=== PATIENT | male | born 1930 | race Caucasian/White ===

== ENCOUNTER 2016-09-17 14:48 | Inpatient (IN) | payer MEDICARE ==
[~2016-09-17] VITALS: Ht 172.7 cm; Wt 83.9 kg
[2016-09-17] VITALS (7 sets, daily range): BP systolic 98–133; BP diastolic 50–71; PULSE 54–67; RESP 12–18; O2SAT 98–100
[~2016-09-17 14:48] MED LIST: ALFU10TA11 PO; ALPR0.254 PO; CALC-890 PO; CARV3.122 PO; FRSM80T PO; GABA-502 PO; LISI2.5T PO; MAGN400C PO; NITR0.4T SL; PARO10TA2 PO; RANI150T11 PO; SPIR25TA3 PO; TRAM50TA2 PO; WARF5TAB7 PO
--- NOTE | 2016-09-17 15:16 | ED.REPORT ---
HPI-General Illness Date of Service Sep 17, 2016 ED Provider: Dr. Jean King M.D. An 86 year old male with a medical history including CHF, CAD, diabetes, hypertension, peripheral neuropathy, and atrial fibrillation s/p pacemaker placement presents to the ED from his PCP's office accompanied by his with worsening bilateral lower extremity swelling over the past six months. Associated symptoms include SOB, recent weight increase, mouth pain, and bilateral finger pain. Last week, the patient's furosemide dose was increased by his layout inspector. He has gained four more pounds since. The patient denies chest pain or other symptoms. Nursing Notes Stated Complaint: FLUID RETENTION Chief Complaint: General Complaint Nursing Notes Reviewed: Yes Allergies: Coded Allergies: Sulfa (Sulfonamide Antibiotics) (Verified Allergy, Severe, Itching and rash, 09/17/16) hydrocodone (Verified Allergy, Mild, 09/17/16) hydroxyzine (Verified Allergy, Mild, 09/17/16) Scheduled Alfuzosin ER (Alfuzosin ER) 10 Mg Tab.er.24h 10 MG PO QAM Calcium Carbonate/Vitamin D3 (Calcium 600 + Vit D3 Tablet) 1 Each Tablet 1 EACH PO BID Carvedilol (Carvedilol) 3.125 Mg Tablet 3.125 MG PO BID Furosemide (Furosemide) 20 Mg Tab 60 MG PO BID Magnesium Oxide (Magnesium) 400 Mg Capsule 400 MG PO BID Spironolactone (Spironolactone) 25 Mg Tablet 12.5 MG PO QAM Warfarin Sodium (Warfarin Sodium) 5 Mg Tablet 2.5 MG PO DAILY except Warfarin Sodium (Warfarin Sodium) 5 Mg Tablet 5 MG PO Q Tuesday Scheduled PRN Nitroglycerin SL (Nitrostat) 0.4 Mg Tab.subl 0.4 MG SL Q5MIN PRN PRN For Chest Pain oxyCODONE (oxyCODONE) 5 Mg Tablet 5 MG PO BID PRN PRN For Pain General Time Seen by MD: 15:15 Transferred From: Private physician office Chief Complaint Other (Bilateral Lower Extremity Swelling) Hx Obtained From: Patient, Spouse Arrived By: Walk-in Sudden in Onset?: No Onset Occurred: More than a week ago... (Six months) Symptom Duration: Since onset Location: : Hand left (Fingers): Hand right (Fingers): Mouth Quality: Painful Severity: Current: Moderate Severity: Maximum: Moderate Pertinent Negative: Relieved by nothing Context Related History: Reports Coronary artery disease, Reports Diabetes mellitus Recent Healthcare: Recent doctor visit Similar Sx Previous: Yes Past Medical History Past Medical History Notes: Photographer Portrait - Dr. Valentine Past Medical History Myocardial infarction - Anterior [place] CHF (systolic), EF 25% by echo in 2014 history of diverticulitis arthritis Cholecystitis History of perforated gastric ulcer 1967 History of peripheral vascular disease History of prostate CA History of peripheral vascular disease History of atrial fibrillation, now a pacemaker Reports: Coronary artery disease, Diabetes mellitus, Hyperlipidemia, Hypertension Past Surgical History Biventricular AICD left knee surgery perforated ulcer repair 1967 intestinal resection PTCA and stenting LAD Cardiac ablation for A. fib/flutter Reports: Appendectomy Reports: Pacemaker insertion Smoking History Former Smoker Social History Alcohol Use: Denies alcohol use Drug Use: Denies drug use Other Social History: Ambulatory Status Independent Review of Systems Full Review of Systems Constitutional: Denies: Fever Ears / Nose / Throat: Reports: Mouth pain Respiratory: Reports: Shortness of breath, Denies: Non-productive cough Cardiovascular: Denies: Chest pain GI: Denies: Diarrhea, Vomiting Musculoskeletal: Reports: Extremity pain (Bilateral fingers), Extremity swelling (Bilateral legs) Endocrine: Reports: Weight gain (Recently 4lbs in one week) Complete sys rev & neg: except as marked. Physical Exam Vital Signs Vital Signs Date Time Temp Pulse Resp B/P Pulse Ox O2 Delivery O2 Flow Rate FiO2 09/17/16 17:53 59 12 98/52 98 Room Air 09/17/16 16:06 59 18 103/50 98 Room Air 09/17/16 15:06 36.0 60 18 101/67 98 Room Air Initial VS: Reviewed ENT: Conjunctiva normal, No scleral icterus Skin: Warm, Dry Psychiatric: Mood/affect normal, Behavior normal General/Constitutional: Awake, Alert, Not toxic appearing Head / Eyes: Atraumatic, Normocephalic Neck: Supple, Full range of motion Respiratory / Chest: Breath sounds = bilat, No respiratory distress Chest Wall / Ribs: Positive: Implanted cardiac device (Pacemaker palpable in left anterior chest wall) Mild crackles in bilateral bases Cardiovascular: Heart rate NL, Regular rhythm, Heart sounds NL, No gallop, No murmurs, No rubs, Peripheral circulation NL (Good radial pulses) Lower Ext Edema: Positive: Pitting (Marked, bilateral, extends up to knees) Abdomen: Soft, Non-tender, No distention Lower Extremity / Pelvis / MS: Atraumatic Leaking serous fluid from bilateral edematous legs Neurologic: Oriented X3, Speech NL Interpretation & Diagnostics Lab Results Interpretation Result Diagram: 09/17/16 1603 09/17/16 1603 Test 09/17/16 16:03 White Blood Count 6.7th/mm3 (3.8-10.1) Red Blood Count 4.71mil/mm3 (4.40-5.80) Hemoglobin 9.7g/dL (13.8-17.2) Hematocrit 30.4% (41.0-50.0) Mean Corpuscular Volume 64.5fL (81-100) Mean Corpuscular Hemoglobin 20.6pg (27.0-35.0) Mean Corpuscular Hemoglobin Concent 31.9% (32.0-37.0) Red Cell Distribution Width 20.5% (12.3-15.4) Platelet Count 102bil/L (150-400) Neutrophils (%) (Auto) 78.6% (40-74) Lymphocytes (%) (Auto) 9.7% (14-46) Monocytes (%) (Auto) 10.6% (4-12) Eosinophils (%) (Auto) 0.9% (0-5) Basophils (%) (Auto) 0.1% (0-3) Prothrombin Time 84.1sec (8.1-12.5) Prothromb Time International Ratio 7.54ratio Sodium Level 126mEq/L (134-144) Potassium Level 4.4mEq/L (3.5-5.2) Chloride Level 85mEq/L (97-108) Carbon Dioxide Level 20mmol/L (18-29) Blood Urea Nitrogen 99mg/dL (8-27) Creatinine 2.78mg/dL (0.76-1.27) Estimat Glomerular Filtration Rate 23mL/min (>59) Glucose Level 146mg/dL (60-99) Calcium Level 9.5mg/dL (8.5-10.1) Magnesium Level 2.4mg/dL (1.6-2.6) Total Bilirubin 1.1mg/dL (0.0-1.2) Aspartate Amino Transf (AST/SGOT) 51U/L (0-50) Alanine Aminotransferase (ALT/SGPT) 41U/L (0-44) Alkaline Phosphatase 133U/L (25-160) Troponin T 0.054ug/L (0.0-0.011) Pro-B-Type Natriuretic Peptide 14777ob/mL (0-486) Total Protein 6.6g/dL (6.4-8.4) Albumin 3.7g/dL (3.4-5.0) Hold [place] Top Tube Received (Received) ECG Interpretation ECG Interpretation: Ventricular-paced complexes rate 68 When compared to prior (01/05/2016) there are no acute changes present Time: 15:21 Interpreted by: ED physician X-Ray Chest Interpretation Chest Xray Interpretation: IMPRESSION: No acute process. Dictated by: Sherman Escamilla M.D. on 09/17/2016 at 15:56 View: Portable, 1 view Interpretation / Wet Read by: Interpret - Radiologist Re-Eval/Medical Decision Med Decision/Clinical Course An 86 year old male with a medical history including CHF, CAD, diabetes, hypertension, peripheral neuropathy, and atrial fibrillation s/p pacemaker placement presents to the ED from his PCP's office accompanied by his with worsening bilateral lower extremity swelling over the past six months. Associated symptoms include SOB, recent weight increase, mouth pain, and bilateral finger pain. Last week, the patient's furosemide dose was increased by his layout inspector. He has gained four more pounds since. The patient denies chest pain or other symptoms. Here in the emergency department the patient is afebrile so consistently borderline hypotensive, otherwise with stable vital signs and examination as above. ECG 15:21 Ventricular-paced complexes rate 68 When compared to prior (01/05/2016) there are no acute changes present CXR: Obtained, reviewed and interpreted by myself shows no evidence of infiltrates, effusions or pneumothorax. Cardiac and mediastinal silhouette normal. No bony or soft tissue abnormalities. LAB: No leukocytosis Stable hematocrit at 30.4 BUN 99 - acutely elevated from baseline of 20-30 Creatinine 2.78 - acutely elevated from baseline of 1 BMP 32649 Troponin 0.054 Potassium 4.4 Sodium 126 - at baseline INR 7.54 Time, patient presents with weight gain and worsening lower extremity edema in the setting of increasing his Lasix to 60 mg twice daily. He has acute renal failure with markedly elevated BUN and creatinine. EKG does not demonstrate any acute ischemic changes noted he is in a ventricular paced rhythm. He said he has not had any chest pain or shortness of breath suggestive of acute coronary syndrome. His troponin is mildly elevated though this is in the setting of acute kidney injury and therefore difficult to interpret. He will need to have his troponin trended. At this time I feel that the patient warrants admission to the hospital. While he has had some weight gain his presentation is not very suggestive of significant CHF exacerbation and his chest x-ray demonstrates no pulmonary edema. Given the degree of his kidney injury I have opted to withhold diuresis for the moment though I have not administered IV fluids either. Patient was discussed with hospitalist and transferred in stable condition. Source of Hx: Old records Time of Eval: 17:00 Patient Status: Condition improved Re-Evaluation/Progress Note: Discussed with patient x-ray, lab, and ECG results, diagnosis, and plan for admit. Patient agrees with plan for care and all questions were addressed. Consultation : Referral / Consult Name: Dreeje Del Rosario MD Consulted With: Hospitalist Call Returned at: 18:03 Marble Installer: Agrees with eval, Agrees with plan, Accepts admit Counseled Regarding: Diagnosis, Lab results, Need for admission Discharge & Departure Primary Impression: Acute renal failure Acute renal failure type: unspecified Qualified Code: N17.9 - Acute kidney failure, unspecified Additional Impressions: Bilateral lower extremity edema Supratherapeutic INR Hyponatremia Elevated troponin I level Elevated brain natriuretic peptide (BNP) level History of congestive heart failure Disposition: ADMITTED TO HOSPITAL Discharge Condition All VS Reviewed: Yes Condition: Improved Referrals: Edwina Chavez MD (PCP) Crit Care Except Billable Proc Time Spent: 105-134 minutes Services Performed: Patient management by me, Time spent at bedside, Reviewing test results, Reviewing imaging, Discussing patient care, Documentation in record, Time with fam/surrogate Scribe Attestation Portions of this note were transcribed by Chiara Wills. I, Dr. King, personally performed the history, physical exam, and medical decision-making; I reviewed and confirmed the accuracy of the information in the transcribed note. Signed by: Kera Oneal, 09/17/2016, 18:45 copies to: Edwina Chavez MD, Beck O MD Sep 17, 2016 15:16 CHIARA WILLS Sep 17, 2016 15:54
--- NOTE | 2016-09-17 15:58 | DRSVH ---
PROCEDURE: X-RAY CHEST ONE VIEW, PORTABLE ([id number]) INDICATIONS: chf TECHNIQUE: One view of the chest was acquired. COMPARISON: [facility], CR, XR CHEST 2VW, 08/06/2016, 11:00. [facility], CR , XR CHEST 1VW (PORTABLE), 09/16/2015, 16:32. [facility], CR, XR CHEST 1VW (PORTABLE), 10/2015, 11:44. [facility], CR, CHEST 1VW (PORTABLE), 03/27/2009, 8:01. FINDINGS: Surgical changes and devices: Left-sided pacer. Lungs and pleura: No pleural effusions or pneumothorax. Lungs are clear. Mediastinum: Mediastinal contours appear normal. Heart size is enlarged. Bones and chest wall: No suspicious bony lesions. Overlying soft tissues appear unremarkable. IMPRESSION: No acute process. Dictated by: Sherman Escamilla M.D. on 09/17/2016 at 15:56 Approved by: Sherman Escamilla M.D. on 09/17/2016 at 15:57
[2016-09-17 16:13] LABS: BASOPHILS % (AUTO) 0.1 % (0-3); EOSINOPHILS % (AUTO) 0.9 % (0-5); MONOCYTES % (AUTO) 10.6 % (4-12); Mean Corpuscular Hemoglobin 20.6 pg (27.0-35.0); Mean Corpuscular Volume 64.5 fL (81-100); NEUTROPHILS % (AUTO) 78.6 % (40-74); Platelet Count 102 bil/L (150-400)
[2016-09-17 16:57] LABS: TROPONIN T 0.054 ug/L (0.0-0.011)
[2016-09-17 17:02] LABS: INR 7.54 ratio
[2016-09-17] MEDS ORDERED: Ondansetron 2 mg/mL 2 mL Inj IVPUSH PRN ×2 (17:10→18:25)
[2016-09-17] MEDS ORDERED: Alum-Mag Hydrox-Simeth 30 mL Suspension PO PRN (17:10)
[2016-09-17] MEDS ORDERED: FUR20 PO (18:09)
[2016-09-17] MEDS ORDERED: OXYC5TAB72 PO (18:09)
[2016-09-17] MEDS ORDERED: WARF5TAB7 PO (18:09)
--- NOTE | 2016-09-17 18:52 | NUR ---
[facility] Patient arrived at [facility] room #1021 at 1830, Telemetry applied paced 60's, bilateral lower edema with some weeping, Cr 2.7, BUN 99, INR 7.5, RA, S/L, shortness of breath with any activity. Hx [place] 2008 with right side damage per patient report. Falls risk, patient reports to having spells of blacking out x1 and feelings of dread last year.
[2016-09-17] MEDS ORDERED: Heparin 5,000 Unit/mL Inj SUBQ SCH (20:30)
[2016-09-17 20:33] LABS: APPEARANCE,URINE CLEAR (CLEAR,HAZY); COLOR,URINE YELLOW (YELLOW); PH,URINE 5.5 (5.0-8.0)
[2016-09-17 20:34] LABS: OCCULT BLOOD,URINE NEGATIVE (NEGATIVE); UROBILINOGEN,URINE NORMAL (NORMAL)
--- NOTE | 2016-09-17 21:20 | PCM.HPMED ---
Subjective Date of Service Sep 17, 2016 Primary Provider: Admitting Physician: Dereje Del Rosario MD Primary Care Physician: Edwina Chavez MD Attending Physician: Dereje Del Rosario MD Admit Status: From the Emergency Department Chief Complaint: Worsening Bilateral Lower Extremity Edema History of Present Illness: Pleasant 86yo man with history of CKD3, CHF, CAD, [place] 2008, AFib s/p pacemaker, Prostate Cancer s/p radiation in 2007 presented to the ED on the suggestion of his PCP, Dr Chavez after being seen earlier today for worsening LE edema, fatigue, and weight gain despite an increase in his Furosemide last week by his sidewalk inspector, Dr Valetnine. In the ER he had an EKG revealing a ventricular paced rhythm, rate of 68, unchanged from 01/05/16, unremarkable CXR. No intervention or therapy was done in the ER. He has gained 20lbs in 4 weeks and 4lbs in the last week after the increase of his Furosemide to 60mg PO BID. He also complains of pain in his finger tips, urinating often but not very much, chronic intermittent pain in his neck and shoulders, fairly stable SMITH. He denies orthopnea, but his reports he does stop breathing at night for as long as 30 seconds and then gasps without waking. Review of Systems: Complete ROS is otherwise negative except as noted above in the HPI. Allergies Coded Allergies: Sulfa (Sulfonamide Antibiotics) (Verified Allergy, Severe, Itching and rash, 09/17/16) hydrocodone (Verified Allergy, Mild, 09/17/16) hydroxyzine (Verified Allergy, Mild, 09/17/16) Home Medications Scheduled Alfuzosin ER (Alfuzosin ER) 10 Mg Tab.er.24h 10 MG PO QAM Calcium Carbonate/Vitamin D3 (Calcium 600 + Vit D3 Tablet) 1 Each Tablet 1 EACH PO BID Carvedilol (Carvedilol) 3.125 Mg Tablet 3.125 MG PO BID Furosemide (Furosemide) 20 Mg Tab 60 MG PO BID Magnesium Oxide (Magnesium) 400 Mg Capsule 400 MG PO BID Spironolactone (Spironolactone) 25 Mg Tablet 12.5 MG PO QAM Warfarin Sodium (Warfarin Sodium) 5 Mg Tablet 2.5 MG PO DAILY except Warfarin Sodium (Warfarin Sodium) 5 Mg Tablet 5 MG PO Q Tuesday Scheduled PRN Nitroglycerin SL (Nitrostat) 0.4 Mg Tab.subl 0.4 MG SL Q5MIN PRN PRN For Chest Pain oxyCODONE (oxyCODONE) 5 Mg Tablet 5 MG PO BID PRN PRN For Pain PMH Myocardial infarction - Anterior [place] CHF (systolic), EF 25% by echo in 2013 history of diverticulitis arthritis Cholecystitis History of perforated gastric ulcer 1967 History of peripheral vascular disease History of prostate CA History of peripheral vascular disease History of atrial fibrillation, now a pacemaker Coronary artery disease Diabetes mellitus Hyperlipidemia Hypertension Surgical History Biventricular AICD left knee surgery perforated ulcer repair 1967 intestinal resection PTCA and stenting LAD Cardiac ablation for A. fib/flutter Appendectomy Pacemaker insertion Cholecystectomy Family History Father at age 83 from stomach cancer Mother at age 86 with a heart valve problem and dementia Social History Hx Alcohol Use: No Hx Substance Use: No Hx Tobacco Use: Yes Smoking Status: Former Smoker (Quit 40 years ago) Exam Vital Signs Vital Sign - Last Date Time Temp Pulse Resp B/P Pulse Ox O2 Delivery O2 Flow Rate FiO2 09/17/16 18:35 36.4 57 18 100/62 100 Room Air Exam General: Alert, Oriented X3, Cooperative, No Acute Distress Head: Normocephalic, atraumatic. External ears normal. Eyes: PERRLA, EOMI. Anicteric sclerae. Mouth: Mouth Normal, Mucous Membranes Moist/[place] Neck: Neck supple with full range of motion. Chest & Lungs: Clear to auscultation bilaterally with no crackles, wheezes, or rhonchi. Cardiovascular: Heart sounds distant, hard to distinguish Abdomen: Non-tender, Non-distended, No masses, Normoactive bowel tones, Soft Musculoskeletal: Normal Range of Motion Extremities: 2+ bilateral pitting edema to six inches above the knees. He reports his legs and ankles are normally very thin. Neurological: Grossly Neurologically Intact, Cranial Nerves 2-12 Intact, Normal Speech, Strength Normal 4/4 ext but proximal muscle weakness, can't lift legs into the bed himself, needs walker Lab and Diagnostics Labs Laboratory Tests Test 09/17/16 16:03 09/17/16 19:40 White Blood Count 6.7th/mm3 (3.8-10.1) Red Blood Count 4.71mil/mm3 (4.40-5.80) Hemoglobin 9.7g/dL (13.8-17.2) Hematocrit 30.4% (41.0-50.0) Mean Corpuscular Volume 64.5fL (81-100) Mean Corpuscular Hemoglobin 20.6pg (27.0-35.0) Mean Corpuscular Hemoglobin Concent 31.9% (32.0-37.0) Red Cell Distribution Width 20.5% (12.3-15.4) Platelet Count 102bil/L (150-400) Neutrophils (%) (Auto) 78.6% (40-74) Lymphocytes (%) (Auto) 9.7% (14-46) Monocytes (%) (Auto) 10.6% (4-12) Eosinophils (%) (Auto) 0.9% (0-5) Basophils (%) (Auto) 0.1% (0-3) Prothrombin Time 84.1sec (8.1-12.5) Prothromb Time International Ratio 7.54ratio Sodium Level 126mEq/L (134-144) Potassium Level 4.4mEq/L (3.5-5.2) Chloride Level 85mEq/L (97-108) Carbon Dioxide Level 20mmol/L (18-29) Blood Urea Nitrogen 99mg/dL (8-27) Creatinine 2.78mg/dL (0.76-1.27) Estimat Glomerular Filtration Rate 23mL/min (>59) Glucose Level 146mg/dL (60-99) Calcium Level 9.5mg/dL (8.5-10.1) Magnesium Level 2.4mg/dL (1.6-2.6) Total Bilirubin 1.1mg/dL (0.0-1.2) Aspartate Amino Transf (AST/SGOT) 51U/L (0-50) Alanine Aminotransferase (ALT/SGPT) 41U/L (0-44) Alkaline Phosphatase 133U/L (25-160) Troponin T 0.054ug/L (0.0-0.011) Pro-B-Type Natriuretic Peptide 17548yk/mL (0-486) Total Protein 6.6g/dL (6.4-8.4) Albumin 3.7g/dL (3.4-5.0) Hold [place] Top Tube Received (Received) Urine Color Yellow (YELLOW) Urine Appearance Clear (CLEAR,HAZY) Urine pH 5.5 (5.0-8.0) Urine Specific [place] 1.015 (1.003-1.035) Urine Protein Negativemg/dL (NEG,TRACE) Urine Glucose (UA) Negativemg/dL (NEGATIVE) Urine Ketones Negativemg/dL (NEGATIVE) Urine Occult Blood Negative (NEGATIVE) Urine Nitrite Negative (NEGATIVE) Urine Bilirubin Negative (NEGATIVE) Urine Urobilinogen Normalmg/dL (NORMAL) Urine Leukocyte Esterase Negative (NEGATIVE) Urine RBC 0-2/hpf (0-2) Urine WBC 0-5/hpf (0-5) Urine Epithelial Cells Few/hpf (NONE-MOD) Urine Crystals None seen (NONE SEEN) Urine Bacteria Few/hpf (NONE-FEW) Urine Hyaline Casts Occasional/lpf (NONE) Urine Granular Casts None seen (NONE SEEN) Urine Waxy Casts None seen (NONE SEEN) Urine Red Blood Cell Casts None seen (NONE SEEN) Urine White Blood Cell Casts None seen (NONE SEEN) Urine Mucus None seen (None Seen) Urine Trichomonas None seen (NONE SEEN) Urine Yeast None (NONE SEEN) Urinalysis Comment None Urine Culture Reflexed Not indicated Result Diagram: 09/17/16 1603 09/17/16 1603 X-Rays, CTs and MRIs CXR with no acute cardiopulmonary process. 12-lead ECG ventricular paced rhythm, rate of 68, unchanged from 01/05/16 Cardiac Echo Impressions Echocardiogram 08/28/15: Interpretation Summary 1. Normal left ventricular size with normal wall thickness and wall motion abnormalities as noted below. Global EF is reduced with an estimated EF of 30 to 35% 2. Upper limits of normal right ventricular size with mildly reduced systolic function. The estimated RVSP is 79 mm Hg. Evidence for elevated right sided filling pressures. 3. Aortic valve sclerosis without stenosis. Trace insufficiency Assessment & Plan Pleasant 86yo man with history of CKD3, CHF, CAD, [place] 2008, AFib s/p pacemaker, Prostate Cancer s/p radiation in 2007 presented to the ED on the suggestion of his PCP, Dr Chavez after being seen earlier today for worsening LE edema, fatigue, and weight gain despite an increase in his Furosemide last week by his sidewalk inspector, Dr Valentine. He has gained 20lbs in 4 weeks and 4lbs in the last week after the increase of his Furosemide to 60mg PO BID. He also complains of pain in his finger tips, urinating often but not very much, chronic intermittent pain in his neck and shoulders, fairly stable SMTIH. He denies orthopnea, but his reports he does stop breathing at night for as long as 30 seconds and then gasps without waking. 1. Bilateral LE Edema, POA, secondary to acute on chronic kidney injury vs CHF exacerbation which is unlikely with patient having no JVD, nml CXR, no orthopnea , unchanged SMITH. -Dr Askew of Nephrology was consulted and advises: -Increase Lasix to 80mg IV BID -Stop all nephrotoxic medications -He will see the patient in the morning. 2. Acute on Chronic Kidney Injury, POA, of unknown etiology, BUN/Cr increased from baseline 20-30/1.0 to 99/2.78. Pre-renal vs renal vs obstructive cause. -FE Urea to be calculated when lab results are available -Lisinopril already stopped by his sidewalk inspector -Renal ultrasound tonight -Nephrology to consult in the morning 3. Hyponatremia, POA, hypervolemic hyponatremia -expect improvement with diuresis -monitor 3. CHF, POA, stable, no orthopnea, no JVD, normal CXR -continue current medications, Carvedilol 3.125mg BID *echo in am, card consult, recs appreciated 4. AFib, POA, s/p AICD on warfarin, supratherapeutic INR now at 7.54 -Warfarin dosing per pharmacy -holding Warfarin while supratherapeutic with INR -no s/s of hemorrhage 5. Elevated Troponin, POA, trending down, from initial 0.054 to 0.040, likely secondary to kidney injury, patient has no sign of cardiac ischemia, but does have CHF with low EF so insult to the heart in the setting of volume overload could be a factor. -trending troponins. 6. Low Platelets, POA, trending down from last outpatient labs, count was 167 on 09/09/16, could be dilutional vs IPT vs occult liver disease (not likely with normal LFTs) vs a myelodysplastic syndrome. -monitor, if not trending upward consider further workup. 5. Hx of Prostate Cancer, POA, s/p radiation, reports slow stream worsening gradually over months -Patient accepted Aranda catheter to avoid frequent awakening to void. This could also improve the CECILY if the cause is post-renal obstruction from worsening outflow s/p radiation to the prostate. -Continue Alfuzosin ER 10mg daily 6. Chronic Pain, POA, no complaint at present. -PRN Oxycodone 5mg PO BID available, home dosage 7. Hyperglycemia, POA, pt has been followed outpatient for diabetes, but has had only two HA1cs above the pre-diabetic range, never medicated, apparently diet controlled. -level of 146 is likely stress reaction -monitor *[id number] pending PRN medications available for nausea, heartburn, constipation: Ondansetron, Maalox, Senna, Miralax Patient is admitted under inpatient status with expected length of stay greater than 2 midnights due to severity of presenting symptoms, risk of adverse event, and complexity of treatment plan. Pain Evaluation: Adequate Pain Control Resuscitation Status: DNR/DNI:Do Not Resuscitate/Intubate Limited Interventions: Medications and IV Fluid (POLST states comfort measures only.) Attending Statement The patient was seen and examined together with house staff on 09/17/2016 and I have added additional information to the note above. Elmer Guerrero DO Sep 17, 2016 21:20 Miguelina Gifford DO Sep 18, 2016 03:05
[2016-09-17] MEDS: Furosemide 10 mg/mL 4 mL Inj IVPUSH SCH (21:34)
--- NOTE | 2016-09-17 21:57 | PCM.CONPHA ---
Subjective Date of Service: Sep 17, 2016 Requesting Provider: Elmer Guerrero DO Worsening Bilateral Lower Extremity Edema Reason for Pharmacy Consult: Anticoagulation Management Objective Vital Signs Date Time Temp Pulse Resp B/P Pulse Ox O2 Delivery O2 Flow Rate FiO2 09/17/16 18:35 36.4 57 18 100/62 100 Room Air 09/17/16 18:12 36.0 59 12 98/52 98 Room Air 09/17/16 17:53 59 12 98/52 98 Room Air 09/17/16 16:06 59 18 103/50 98 Room Air 09/17/16 15:06 36.0 60 18 101/67 98 Room Air Weight (Kilograms): 85.000 Height (Feet): 5 Height (Inches): 8 Test 09/17/16 16:03 09/17/16 19:40 White Blood Count 6.7th/mm3 (3.8-10.1) Red Blood Count 4.71mil/mm3 (4.40-5.80) Hemoglobin 9.7g/dL (13.8-17.2) Hematocrit 30.4% (41.0-50.0) Mean Corpuscular Volume 64.5fL (81-100) Mean Corpuscular Hemoglobin 20.6pg (27.0-35.0) Mean Corpuscular Hemoglobin Concent 31.9% (32.0-37.0) Red Cell Distribution Width 20.5% (12.3-15.4) Platelet Count 102bil/L (150-400) Neutrophils (%) (Auto) 78.6% (40-74) Lymphocytes (%) (Auto) 9.7% (14-46) Monocytes (%) (Auto) 10.6% (4-12) Eosinophils (%) (Auto) 0.9% (0-5) Basophils (%) (Auto) 0.1% (0-3) Prothrombin Time 84.1sec (8.1-12.5) Prothromb Time International Ratio 7.54ratio Sodium Level 126mEq/L (134-144) Potassium Level 4.4mEq/L (3.5-5.2) Chloride Level 85mEq/L (97-108) Carbon Dioxide Level 20mmol/L (18-29) Blood Urea Nitrogen 99mg/dL (8-27) Creatinine 2.78mg/dL (0.76-1.27) Estimat Glomerular Filtration Rate 23mL/min (>59) Glucose Level 146mg/dL (60-99) Calcium Level 9.5mg/dL (8.5-10.1) Magnesium Level 2.4mg/dL (1.6-2.6) Total Bilirubin 1.1mg/dL (0.0-1.2) Aspartate Amino Transf (AST/SGOT) 51U/L (0-50) Alanine Aminotransferase (ALT/SGPT) 41U/L (0-44) Alkaline Phosphatase 133U/L (25-160) Troponin T 0.054ug/L (0.0-0.011) Pro-B-Type Natriuretic Peptide 15033dp/mL (0-486) Total Protein 6.6g/dL (6.4-8.4) Albumin 3.7g/dL (3.4-5.0) Hold [place] Top Tube Received (Received) Urine Color Yellow (YELLOW) Urine Appearance Clear (CLEAR,HAZY) Urine pH 5.5 (5.0-8.0) Urine Specific [place] 1.015 (1.003-1.035) Urine Protein Negativemg/dL (NEG,TRACE) Urine Glucose (UA) Negativemg/dL (NEGATIVE) Urine Ketones Negativemg/dL (NEGATIVE) Urine Occult Blood Negative (NEGATIVE) Urine Nitrite Negative (NEGATIVE) Urine Bilirubin Negative (NEGATIVE) Urine Urobilinogen Normalmg/dL (NORMAL) Urine Leukocyte Esterase Negative (NEGATIVE) Urine RBC 0-2/hpf (0-2) Urine WBC 0-5/hpf (0-5) Urine Epithelial Cells Few/hpf (NONE-MOD) Urine Crystals None seen (NONE SEEN) Urine Bacteria Few/hpf (NONE-FEW) Urine Hyaline Casts Occasional/lpf (NONE) Urine Granular Casts None seen (NONE SEEN) Urine Waxy Casts None seen (NONE SEEN) Urine Red Blood Cell Casts None seen (NONE SEEN) Urine White Blood Cell Casts None seen (NONE SEEN) Urine Mucus None seen (None Seen) Urine Trichomonas None seen (NONE SEEN) Urine Yeast None (NONE SEEN) Urinalysis Comment None Urine Culture Reflexed Not indicated Urine Random Creatinine 59mg/dL (22-328) Assessment/Plan Assessment/Plan Warfarin per Rx Indicaiton: A-Fib Home Dose: 2.5mg daily except 5mg on Tuesday INR Goal: 2-3; Today's INR: 7.54 Hold Warfarin due to supratherapeutic Daily INR Inder Mckeon PharmD Sep 17, 2016 21:57
[2016-09-18] VITALS (17 sets, daily range): BP systolic 87–121; BP diastolic 55–70; PULSE 57–74; RESP 16–22; O2SAT 96–100
[2016-09-18] MEDS: Sodium Chloride LOK Flush 10 mL Syringe IVFLUSH SCH ×4 (00:30→20:47)
--- NOTE | 2016-09-18 06:06 | NUR ---
Activity Patient uncomfortable in bed repositioned often, from side to side, sitting at foot of bed, and occasionally standing. Bilateral lower weeping edema. Aranda placed, given Lasix IV push. CT scan done awaiting results. Pharmacy put hold on warfarin as pts INR at 7.54. Lab called with critical BUN at 97, this is expected as patient came in with a BUN of 99. photovoltaic installation technician called and reported V-tach for 4 beats unsustained also A-fib, IVCD and V-pacing. Patient appropriate with use of call light, SBA with walker for stability. Has not ambulated more than a few feet this shift.
--- NOTE | 2016-09-18 07:04 | PCM.PNMED ---
Subjective Date of Service Sep 18, 2016 Subjective Patient seen and examined. Still having trouble sleeping due to dyspnea. Even at rest. Denies any chest pain currently. reporting patient noted have weird breathing patterns where he stops breathing for a few seconds then has episodes of rapid breathing Exam Vital Signs Vital Sign - Last Date Time Temp Pulse Resp B/P Pulse Ox O2 Delivery O2 Flow Rate FiO2 09/18/16 05:42 60 09/18/16 05:26 36.1 18 98/55 99 Room Air Intake and Output 09/17/16 09/17/16 09/18/16 Cumulative From/Thru 15:00 23:00 07:00 09/17/16 15:06 - 09/18/16 06:54 Intake Total 1148 ml 1148 ml Output Total 1575 ml 1575 ml Balance -427 ml -427 ml Intake Oral 1148 ml 1148 ml Output Urine Total 1575 ml 1575 ml # Voids 1 1 # Bowel Movements 0 0 Exam General: Alert, Oriented X3, Cooperative, No acute Distress Eyes: PERRLA, Scleral Anicteric Mouth: Mouth Normal, Mucous Membranes Moist/[place] Neck: Supple, no Thyromegaly, trachea central. Chest & Lungs: crackles at bases with decreased breathe sounds Cardiovascular: Normal S1, Normal S2, No Murmurs/Rubs/Gallops, Regular Rate/ Rhythm, Murmur, Other (No JVD, no peripheral edema) Pulses: Radial (present and equal), Dorsalis Pedi (present and equal) Abdomen: Soft, Non-tender, Non-distended, Normoactive bowel tones. Musculoskeletal: Unremarkable. Normal range of motion, no swollen or erythematous joints Extremities: 3+ edema, no cyanosis, no clubbing. Skin: No rashes. Warm and dry, no erythematous areas Neurological: Grossly neurologically intact, has generalized weakness, Normal Speech, Sensation Intact Lymphatic: Lymph nodes Cervical and Axillary not palpable. IVs and Medications Medications Reviewed: Medications were reviewed in detail Lab and Diagnostics Laboratory Tests Test 09/17/16 16:03 09/17/16 19:40 09/18/16 01:15 09/18/16 01:55 White Blood Count 6.7th/mm3 (3.8-10.1) Red Blood Count 4.71mil/mm3 (4.40-5.80) Hemoglobin 9.7g/dL (13.8-17.2) Hematocrit 30.4% (41.0-50.0) Mean Corpuscular Volume 64.5fL (81-100) Mean Corpuscular Hemoglobin 20.6pg (27.0-35.0) Mean Corpuscular Hemoglobin Concent 31.9% (32.0-37.0) Red Cell Distribution Width 20.5% (12.3-15.4) Platelet Count 102bil/L (150-400) Neutrophils (%) (Auto) 78.6% (40-74) Lymphocytes (%) (Auto) 9.7% (14-46) Monocytes (%) (Auto) 10.6% (4-12) Eosinophils (%) (Auto) 0.9% (0-5) Basophils (%) (Auto) 0.1% (0-3) Prothrombin Time 84.1sec (8.1-12.5) Prothromb Time International Ratio 7.54ratio Sodium Level 126mEq/L (134-144) 128mEq/L (134-144) Potassium Level 4.4mEq/L (3.5-5.2) 4.1mEq/L (3.5-5.2) Chloride Level 85mEq/L (97-108) 86mEq/L (97-108) Carbon Dioxide Level 20mmol/L (18-29) 21mmol/L (18-29) Blood Urea Nitrogen 99mg/dL (8-27) 97mg/dL (8-27) Creatinine 2.78mg/dL (0.76-1.27) 2.62mg/dL (0.76-1.27) Estimat Glomerular Filtration Rate 23mL/min (>59) 25mL/min (>59) Glucose Level 146mg/dL (60-99) 118mg/dL (60-99) Calcium Level 9.5mg/dL (8.5-10.1) 9.2mg/dL (8.5-10.1) Magnesium Level 2.4mg/dL (1.6-2.6) Total Bilirubin 1.1mg/dL (0.0-1.2) Aspartate Amino Transf (AST/SGOT) 51U/L (0-50) Alanine Aminotransferase (ALT/SGPT) 41U/L (0-44) Alkaline Phosphatase 133U/L (25-160) Troponin T 0.054ug/L (0.0-0.011) 0.040ug/L (0.0-0.011) Pro-B-Type Natriuretic Peptide 09609su/mL (0-486) Total Protein 6.6g/dL (6.4-8.4) Albumin 3.7g/dL (3.4-5.0) Hold [place] Top Tube Received (Received) Urine Color Yellow (YELLOW) Urine Appearance Clear (CLEAR,HAZY) Urine pH 5.5 (5.0-8.0) Urine Specific [place] 1.015 (1.003-1.035) Urine Protein Negativemg/dL (NEG,TRACE) Urine Glucose (UA) Negativemg/dL (NEGATIVE) Urine Ketones Negativemg/dL (NEGATIVE) Urine Occult Blood Negative (NEGATIVE) Urine Nitrite Negative (NEGATIVE) Urine Bilirubin Negative (NEGATIVE) Urine Urobilinogen Normalmg/dL (NORMAL) Urine Leukocyte Esterase Negative (NEGATIVE) Urine RBC 0-2/hpf (0-2) Urine WBC 0-5/hpf (0-5) Urine Epithelial Cells Few/hpf (NONE-MOD) Urine Crystals None seen (NONE SEEN) Urine Bacteria Few/hpf (NONE-FEW) Urine Hyaline Casts Occasional/lpf (NONE) Urine Granular Casts None seen (NONE SEEN) Urine Waxy Casts None seen (NONE SEEN) Urine Red Blood Cell Casts None seen (NONE SEEN) Urine White Blood Cell Casts None seen (NONE SEEN) Urine Mucus None seen (None Seen) Urine Trichomonas None seen (NONE SEEN) Urine Yeast None (NONE SEEN) Urinalysis Comment None Urine Culture Reflexed Not indicated Urine Random Creatinine 59mg/dL (22-328) Result Diagram: 09/17/16 1603 09/18/16 0115 X-Rays, CTs and MRIs CXR with no acute cardiopulmonary process. CT ABDOMEN AND PELVIS WITHOUT CONTRAST 09/18 IMPRESSION: 1. Nodular appearance of the liver suspicious for cirrhosis with subsequent mild ascites. 2. Diverticulosis. 3. Mild to moderate stool. Dictated by: Jennifer Jameson M.D. on 09/18/2016 at 7:16 Approved by: Jennifer Jameson M.D. on 09/18/2016 at 7:18 US RENAL SONOGRAM 09/18 IMPRESSION: 1. No acute renal abnormality. No obstruction. Dictated by: Jennifer Jameson M.D. on 09/18/2016 at 15:57 Approved by: Jennifer Jameson M.D. on 09/18/2016 at 15:57 12-lead ECG ventricular paced rhythm, rate of 68, unchanged from 01/05/16 Cardiac Echo Impressions Echocardiogram 08/28/15: Interpretation Summary 1. Normal left ventricular size with normal wall thickness and wall motion abnormalities as noted below. Global EF is reduced with an estimated EF of 30 to 35% 2. Upper limits of normal right ventricular size with mildly reduced systolic function. The estimated RVSP is 79 mm Hg. Evidence for elevated right sided filling pressures. 3. Aortic valve sclerosis without stenosis. Trace insufficiency Assessment & Plan Pleasant 86yo man with history of CKD3, CHF, CAD, [place] 2008, AFib s/p pacemaker, Prostate Cancer s/p radiation presenting with worsening LE edema, fatigue, and weight gain despite outpatient titration of diuretic therapy 1. Acute on Chronic systolic CHF with ischemic cardiomyopathy. Present on admission. Under therapy and persistent - Carvedilol discontinued and Hydralazine 25 mg bid added by Cardiology - continue diuresis with Lasix 80mg IV BID - monitor weight and fluid status closely - Dobutamine low dose drip initiated by Dr Malave, transferring to [facility] bed - follow echo and monitor on telemetry 2. Acute on Chronic Kidney Injury, Present on admission. Persistent Etiology unclear and could be multifactorial with Cardiorenal syndrome suspected. Some recent NSAID exposure - Urinalysis showed no proteinuria or hematuria - Lisinopril already stopped by his monument erector - Renal ultrasound showed no Hydronephrosis - please avoid nephrotoxic insults such as contrast and dose medications accordingly - Nephrology consult with Dr Askew 3. Acute Hyponatremia, Present on admission hypervolemic hyponatremia - expect improvement with diuresis - Nephrology to comment 4. Chronic Atrial Fibrillation, Present on admission s/p AICD on warfarin, supra therapeutic INR now at 7.54 No signs of bleeding - Warfarin dosing per pharmacy 5. Elevated Troponin, POA, trending down, from initial 0.054 to 0.040, likely secondary to kidney injury, patient has no sign of cardiac ischemia, but does have CHF with low EF so insult to the heart in the setting of volume overload could be a factor. -trending troponins. 6. Thrombocytopenia , Present on admission Etiology unclear but may suggest cirrhosis - consider HITS but no recent heparin exposure 5.Prostate Cancer, Chronic s/p radiation, reports slow stream worsening gradually over months -Continue Alfuzosin ER 10mg daily 6. Chronic Pain syndrome -PRN Oxycodone 5mg PO BID available, home dosage - Acetaminophen as needed for mild pain/fever/headache - Bowel regimen as needed - Antiemetic as needed Patient is admitted under inpatient status with expected length of stay greater than 2 midnights due to severity of presenting symptoms, risk of adverse event, and complexity of treatment plan. . Resuscitation Status: DNR/DNI:Do Not Resuscitate/Intubate Limited Interventions: Medications and IV Fluid (POLST states comfort measures only.) Geronimo Rodriguez MD Sep 18, 2016 07:04 Geronimo Rodriguez MD Sep 18, 2016 07:04 and complexity of treatment plan. Resuscitation Status: DNR/DNI:Do Not Resuscitate/Intubate Limited Interventions: Medications and IV Fluid (POLST states comfort measures only.) Geronimo Rodriguez MD Sep 18, 2016 07:04
--- NOTE | 2016-09-18 07:19 | DRSVH ---
PROCEDURE: CT ABDOMEN AND PELVIS WITHOUT CONTRAST ([id number]) INDICATIONS: renal failure, abd pain TECHNIQUE: Noncontrast 5 mm thick sections acquired from the diaphragms to the symphysis. 5 mm coronal and sagi ttal reformats were then performed. For radiation dose reduction, the following was used: automated exposure control, adjustment of mA and/or kV according to patient size. COMPARISON: [facility], CT, CT ABD PELVIS W CON, 08/31/2015, 19:49. FINDINGS: Image quality: Excellent. ABDOMEN: Lung bases: Lung bases are clear. Heart size is mildly enlarged. Solid organs: Liver is nodular in appearance. The spleen is normal in size. Gallbladder has been rem ermias. Pancreas is normal in contours. No adrenal nodules. Kidneys are normal in size, without hydr onephrosis or nephrolithiasis. Peritoneum and bowel: Unenhanced bowel loops demonstrate normal wall thickness and caliber. Colonic diverticula are present without associated inflammatory change. Mild fluid is present within the para colic gutters bilaterally, right greater than left as well as mild dependent pelvic fluid. Mild-to-mo derate stool. Nodes and vessels: No retroperitoneal or mesenteric adenopathy by size criteria. Aorta and inferior vena cava are normal in caliber. Miscellaneous: No ventral hernias. PELVIS: Genitourinary: Bladder is decompressed with a Aranda catheter. Miscellaneous: No inguinal hernias or adenopathy. Bones: No suspicious bony lesions. No vertebral body compression fractures. IMPRESSION: 1. Nodular appearance of the liver suspicious for cirrhosis with subsequent mild ascites. 2. Diverticulosis. 3. Mild to moderate stool. Dictated by: Jennifer Jameson M.D. on 09/18/2016 at 7:16 Approved by: Jennifer Jameson M.D. on 09/18/2016 at 7:18
[2016-09-18 07:44] LABS: BASOPHILS % (AUTO) 0 % (0-3); EOSINOPHILS % (AUTO) 0.5 % (0-5); MONOCYTES % (AUTO) 10.1 % (4-12); Mean Corpuscular Hemoglobin 20.3 pg (27.0-35.0); Mean Corpuscular Volume 64.2 fL (81-100); NEUTROPHILS % (AUTO) 81.1 % (40-74); Platelet Count 104 bil/L (150-400)
[2016-09-18 08:25] LABS: INR 5.2 ratio
--- NOTE | 2016-09-18 08:50 | PCM.PHAPRO ---
Progress Warfarin Management by Pharmacy: Indicaiton: A-Fib Home Dose: 2.5mg daily except 5mg on Tuesday INR Goal: 2-3 Concurrent Anticoagulation: none Coagulation Trends: Sep 18-Aug 7.54 5.20 -2.34 HOLD -Plan: inr remains supratherapeutic and will continue to hold the dose this evening Andria Mcgowan [facility] Sep 18, 2016 08:50
[2016-09-18] MEDS: Furosemide 10 mg/mL 4 mL Inj IVPUSH SCH ×2 (09:53→20:41)
--- NOTE | 2016-09-18 11:39 | CONS ---
[address] [address] CONSULTATION REPORT PATIENT: PHIL SANABRIA : 1930 MR#: [id number] ADMIT: 09/17/2016 JOB ID: [id number] CORRECTED REPORT: DATE OF SERVICE: 09/18/2016 RENAL CONSULTATION: HISTORY: The patient is an 86-year-old, white male, who was admitted to [facility] for acute decompensated congestive heart failure and acute kidney injury. Renal consultation is being sought for further evaluation of his acute kidney injury and his congestive heart failure. He has a history of coronary artery disease with a myocardial infarction dating back to 2008. He has undergone a pacemaker insertion and stent placement. He is seen and followed by Dr. Valentine from cardiology. Of related note, he has a history of osteoarthritis in both shoulders. He states that approximately two weeks ago he began to have an exacerbation of some pain in his shoulders and began taking itdc-boa-bikoddi Aleve for the pain. Coinciding with this, he began to have some increasing lethargy, edema, and dyspnea with minimal exertion. He was seen by Dr. Valentine earlier this week, and his diuretics were increased. He was seen again by his family physician yesterday and was found to be retaining more fluid and his weight had increased by 4 pounds. He was advised to come to the emergency department. In the emergency department his baseline creatinine was found to be 2.62. Reviewing his previous lab values dating back to on December 2015, his creatinine at that time was 0.96. He has a remote history of prostate cancer, and this dates back to 2007. He was treated with radiation therapy and had been doing fine since that time. He denies any residual urinary difficulties, increased urinary frequency, dysuria, or urgency. He does have some nocturia. Otherwise, he denies a history of any prior renal problems nor any history of any hematuria, proteinuria, recurrent urinary tract infections, renal lithiasis, osteoarthritis, or frequent use of nonsteroidals prior to this most recent episode. His gave the majority of the history, as the patient was quite somnolent. There is a history of prediabetes, and this is managed by diet. He denies a history of any retinopathy or any history of any peripheral neuropathy. There is a history of hyperlipidemia, along with a history of hypertension which had been under fair control. There is no recent history of any severe headache or amaurosis fugax. However, he has had some progressive fatigue, cough, wheezing and nocturia, but no paroxysmal nocturnal dyspnea per se. He has also had this progressive increase in bilateral lower extremity edema. There is also some associated anorexia and mild nausea without vomiting, constipation, or diarrhea. He denies any rashes or other arthralgias. PAST MEDICAL HISTORY: Significant for osteoarthritis with recent use of nonsteroidal anti-inflammatory agents, prostate cancer with history of radiation therapy, coronary artery disease with pacemaker insertion and stent placement as detailed above, prediabetes, history of congestive heart failure with an ejection fraction of 25% from an echo of 2013, peptic ulcer disease, peripheral vascular disease, atrial fibrillation, and hyperlipidemia. PAST SURGICAL HISTORY: Significant for stent placement in his coronary arteries, biventricular AICD, repair of a perforated ulcer dating back 50 years, some surgery to his knee, cardiac ablation, appendectomy, and cholecystectomy. ALLERGIES: He is allergic to: 1. SULFA. 2. HYDROCODONE. 3. HYDROXYZINE. SOCIAL HISTORY: He denies use of alcohol, tobacco, or illicit drugs, and had been fairly ambulatory until the last several weeks. MEDICATIONS: At time of admission included Aleve, Alfuzosin, calcium carbonate, carvedilol, furosemide, magnesium oxide, spironolactone and warfarin. FAMILY HISTORY: Remarkable for stomach cancer and cardiac disease. REVIEW OF SYSTEMS: As detailed above. PHYSICAL EXAMINATION: Revealed a well-developed 86-year-old, white male who was somewhat somnolent at time of my evaluation. His blood pressure is 121/67 with a pulse rate of 62. HEENT examination is remarkable for pale sclerae. Mucous membranes are dry, and the pupil are reactive to light. Neck is supple without adenopathy or thyromegaly but there is some mild jugular venous distention at approximately 60 degrees elevation. Lungs are clear with poor inspiratory effort. Heart was irregularly irregular. Abdomen was soft, without any tenderness, rebound, guarding, or masses. There was some mild hepatomegaly, and the liver was pulsatile. There is also evidence of hepatojugular reflux. The extremities did not show any evidence of any [id number] nails, clubbing, or cyanosis. There was mild pitting edema up to the mid thigh region. Skin turgor was good. There is no evidence of any rashes. LABORATORY EXAMINATION: His urinalysis showed a specific gravity of 1.015, pH was 5.5. Tests for protein, glucose and ketones were all negative, as was his microscopic exam. This morning his sodium is 130, potassium 3.9, chloride of 86, bicarbonate 21, BUN and creatinine were 95 and 2.41, respectively. His glucose is 116. His white count was 8.1, hemoglobin 9.5, hematocrit 30.1. Red cell indices showed microcytic hypochromic indices, and a platelet count of 104. Differential was unremarkable. IMPRESSION: 1. Drug-induced acute kidney injury secondary to nonsteroidal anti-inflammatories. 2. Acute kidney injury. 3. Microcytic hypochromic anemia. 4. Metabolic acidosis. 5. Hypertension with hypertensive heart disease and hypertensive nephrosclerosis. RECOMMENDATION: 1. I would like to get a urine for eosinophils, along with a renal ultrasound. 2. I would also like to get a uric acid level along with a serum protein electrophoresis. 3. I would like to switch him over to oral torsemide 40 mg twice a day for the next several days and at that point, we can start cutting back. Obviously we need to make sure he does not get any more nonsteroidal anti-inflammatories. Once again, I would like to thank you for allowing me to participate in the care of this most pleasant and interesting patient. I will be following him closely with you. Corrected by CLAUDINE 10/14/16 at 1:38pm DOS
--- NOTE | 2016-09-18 14:37 | CONS ---
[address] [address] CONSULTATION REPORT PATIENT: PHIL SANABRIA : 1930 MR#: [id number] ADMIT: 09/17/2016 JOB ID: [id number] DATE OF SERVICE: 09/18/2016 CARDIOLOGY CONSULTATION: I have been asked by the hospitalist to see the patient to assist with his evaluation for progressive right-sided fluid congestion and acute renal insufficiency. 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 He was treated with angioplasty and stenting at that time, but apparently suffered a fairly significant amount of myocardial injury with the resulting ejection fraction in the range of 30%-40%. His right coronary and left circumflex vessels showed [id number] disease but no significant obstructive disease. Repeat angiography was performed in October of 2009 showing no significant change. He had anteroapical akinesis at that time with a 30% estimated ejection fraction, [id number] mitral regurgitation and mild elevation in left ventricular filling pressures. In October of 2009 he then underwent dual-chamber ICD placement. He had had prominent first-degree AV block and periods of second-degree AV block and a dual-chamber ICD was placed. He generally did well over the next intervening years. From review of his records, it appears that somewhere around June or early 2014, he developed persistent atrial fibrillation and his ICD was reprogrammed to a VVIR mode. He presented in September of 2015 with cholecystitis. At that time echocardiogram was performed showing a 30%-35% ejection fraction. What is notable is the fact that his echocardiograms have shown evidence of moderately severe pulmonary hypertension dating back at least to his echo from June 2010. The pulmonary artery pressure is estimated in the range of 70 mmHg. I do not see that has been further evaluated in the past and the etiology of his pulmonary hypertension is somewhat uncertain. The nuclear cardiac stress study was also done in September of 2015 showing a large anteroapical scar without significant ischemia. This gentleman was admitted yesterday from his primary care provider's office for gradually progressive edema over the last six months despite outpatient therapy. The patient today admits to functional class 3 exertional dyspnea. He is dyspneic when he first lays down in bed at night but does not complain of significant orthopnea or PND. There are some records that suggest that he has put on 20 pounds of fluid weight in the past four weeks. HOME MEDICATIONS: Include: 1. Carvedilol 3.125 mg b.i.d. 2. Furosemide was changed from 20 mg twice daily to 60 mg twice daily just last week. On review of his prior records between 2008 and 2014, he was taking as much as 120 mg of furosemide daily. 3. He has been on low-dose spironolactone in addition to warfarin therapy. 4. I do not see that his carvedilol has been increased significantly and I do not see that he was ever on an ARB or NIGEL inhibitor for unclear reasons. FAMILY AND SOCIAL HISTORY: Noted. REVIEW OF SYSTEMS: Is limited because of his moderate lethargy, but he has no complaints of angina-like chest discomfort. No history of stroke or stroke-like symptoms. His has been aware of a Luis E-Eden respiratory pattern which occurred for a period of time after his myocardial infarction in 2008 and then seemed to resolve only to come back just in the last week or so. He denies any history of hematuria or kidney problems. He denies any history of GI blood loss. He has been itching for some time and has multiple petechiae over his upper trunk and arms and to a lesser extent his face. No history of stroke or stroke-like symptoms before. PHYSICAL EXAMINATION: Shows an elderly, moderately lethargic gentleman. His color appears good. He has an apparent Luis E-Eden respiratory pattern and fades in an out with his respiratory pattern. He is 5 feet, 8 inches tall, weighs 187 pounds with a body mass index that is not calculated. His blood pressures have generally been ranging between 100 and 120 systolic. Heart rates in the 50s and 60s. HEENT examination is otherwise unremarkable. I do not see any scleral icterus. His jugular venous pressure is significantly distended, visible at the angle of the jaw with the patient at 60 degrees. Carotid upstroke is low amplitude with a regular pulse. Lung rodriguez are fairly clear. I do not hear any obvious wheezing or rales. Heart tones are somewhat distant. ICD placement in the left subclavian fossa noted. I do not feel an obvious precordial heave. I do not hear an S3 gallop or hear any significant murmurs. Abdomen is soft and nontender. I suspect that there is a mild amount of ascites clinically. His liver is not palpably enlarged nor is his spleen. I hear no abdominal aortic bruits. Distal extremities are quite edematous. There is a moderate amount of pallor distally. Extremities are mildly cool to the touch. I do not see any acrocyanosis or clubbing. LABORATORY: Notable for significant elevation in creatinine of 2.6 earlier this morning. BUN ranging around 97. He is hyponatremic with sodiums of 128-130. His potassium level is okay. CO2 is normal. His troponins have been moderately elevated but in a nondescript fashion and his BNP is markedly elevated at 26,000 on admission. Imaging shows mild cardiomegaly with prominent aortic calcification and evidence of moderate pulmonary congestion without overt edema. Dual-chamber ICD noted. IMPRESSION: 1. Ischemic cardiomyopathy: This patient has a long history of significant ventricular dysfunction related to fairly extensive anterior myocardial infarction. His clinical course suggests progressive decline in left ventricular systolic function with Luis E-Eden respiratory pattern and evidence of hypoperfusion and hyponatremia. An echocardiogram is scheduled for today and will be useful to better quantify his overall cardiac function and better understand his low cardiac output syndrome. 2. Acute renal failure: I suspect this is multifactorial related to overall poor cardiac output combined with I suspect some degree of renal vascular disease and recent consumption of nonsteroidal anti-inflammatory medications. 3. Unexplained pulmonary hypertension: This gentleman has had significant chronic pulmonary hypertension and now progressive right ventricular dysfunction. The etiology for his pulmonary hypertension is uncertain and seems more than one would expect from simply passive congestion from left-sided pressures. Overnight oximetry should be considered to see if he has significant nocturnal hypoxemia. 4. Microcytic hypochromic anemia. 5. Moderate thrombocytopenia with diffuse petechiae noted. DISCUSSION: I have spoken with Dr. Rodriguez and recommended that we place him on low-dose dobutamine. I am going to discontinue his low-dose carvedilol for the time being and put him on low-dose hydralazine and will see if we cannot improve overall cardiac function and Dr. Askew has seen this patient and is further evaluating his overall kidney function. I will look forward to following up on this gentleman's progress tomorrow with further recommendations as needed.
--- NOTE | 2016-09-18 14:39 | NUR ---
Transfer to 2007 Pt transferred up to 2007 with Jer Springer RN at 1415 to be placed on Dobutamine gtt. Merna present for transport. Pt continues to deny pain but looks uncomfortable and has labored breathing, which reports is his baseline. VSS. Aranda secured to thigh, patent draining to gravity. All belonging with pt.
--- NOTE | 2016-09-18 14:40 | PCM.ADCARE ---
Advance Care Planning Note Purpose of Encounter: Active Diagnoses: Acute on Chronic systolic Congestive heart Failure Acute on Chronic Kidney disease Chronic Atrial fibrillation These active diagnoses are sufficient risk that focused discussion on advance car planning is indicated in order to allow the patient to thoughtfully consider personal goals of care and if situations arise that prevent the ability to personally give input to insure appropriate representation of their personal desires through documentation or informed surrogate decision makers Parties in Attendance: Patient and and me Decisional Capacity: Good Goals of Care Determinations: I reviewed the prognosis of Heart failure with systolic dysfunction as well as the poor state of his kidney disease and his desires for ongoing aggressive care , including potential intubation and mechanical ventilation as well as CPR. Also discussed who would speak on his behalf should he be unable to do so, he states his [place] Stephen will be his proxy and decision maker He has also filled the 5 wishes and Polst form with his Primary care doctor Dr Edwina Chavez. Patient is aware of the poor prognosis of his medical conditions and wishes to continue with DNR/DNI CODE STATUS: DNR/DNI and COMFORT MEASURES ONLY No medically assisted Nutrition Determine use or limitation of antibiotics when infection occurs, with comfort as goal Time Spent Adv.Care Planning: Total time spent [id number] in education and discussion directly related to Advance Care Plannin minutes Geronimo Rodriguez MD Sep 18, 2016 14:40
[2016-09-18] MEDS: DOBUTamine 500 mg/250 D5W 500,000 MCG in IV Premix 1 EACH IV SCH (15:08)
--- NOTE | 2016-09-18 15:59 | DRSVH ---
PROCEDURE: US RENAL SONOGRAM INDICATIONS: CECILY TECHNIQUE: Real-time scanning was performed of the kidneys and bladder, with image documentation. COMPARISON: None. FINDINGS: Kidneys: Kidneys are normal in size. Right kidney measures 9.8 cm long; left kidney measures 10.4 c m long. Right renal cortical thickness is 1.0 cm; left renal cortical thickness is 1.0 cm. Renal co rtical echotexture is normal. No hydronephrosis or nephrolithiasis. No suspicious solid mass lesion s. Bladder: Bladder is contracted with a Aranda catheter. On pre-void images, neither ureteral jets are n oted with color Doppler interrogation. (Of note, ureteral jets may not be detectable in up to 25% of cases due to insufficient differences in specific gravity between ureteral and bladder urine). Miscellaneous: Minimal free fluid is noted within the left lower quadrant. IMPRESSION: 1. No acute renal abnormality. No obstruction. Dictated by: Jennifer Jameson M.D. on 09/18/2016 at 15:57 Approved by: Jennifer Jameson M.D. on 09/18/2016 at 15:57
--- NOTE | 2016-09-18 18:31 | NUR ---
Dobutamine Pt arrived to [facility] room 2007 at ~1415 from [facility]. Pt restless, denied pain, reported mild SOB at rest which worsened with laying flat/exertion, Pt's SPO2 sats in the upper 90s on RA. Pt edematous, anasarca not currently present in LE. Pt started on dobutamine gtt at 2.5mcg/kg/Hr after clarifying with director teen post, Pt's BPs in the 80s-90s/50s-60s. Pt denies dizziness at rest, reports mild dizziness with standing. Pt's UOP 1400mL this shift.
[2016-09-19] VITALS (11 sets, daily range): BP systolic 99–145; BP diastolic 52–76; PULSE 61–98; RESP 11–20; O2SAT 96–99
[2016-09-19 03:12] LABS: INR 3.39 ratio
[2016-09-19 03:33] LABS: Unsaturated Iron Binding 427.1 ug/dL
--- NOTE | 2016-09-19 05:55 | NUR ---
Restlessness/Tele/Skin Pt very restless and was noted to sit up and down multiple times w/ frequent tossing, turning and a lot of fidgeting. Pt requested something to help him sleep, paged and ordered one time dose of Melatonin. This was given but not effective and pt continued to be extremely restless throughout night. notified that Melatonin was not effective and pt was voicing frustration. No new orders given. Pt stated "I can't turn off my brain." Pt appeared forgetful but when asked on a few occasions was oriented x3. Pt also denied pain or SOB. Attempted to position bed in multiple ways to increase comfort. Tried low lighting, calming music and no music at all. Pt tele mostly VPaced w/ multiple PVCs, notified that pt was noted to have increased PVCs since start of Dobutamine gtt (over 20/min), which continues at 2.5mcg/kg/hr. Other vitals stable. O2 maintained throughout night but this was while pt awake. Pt monitored continuously on MP30. Aranda patent and draining urine to gravity. Right groin area appears red, area cleaned and powder applied to control moisture.
--- NOTE | 2016-09-19 07:14 | PCM.PHAPRO ---
Progress Date of Service: Sep 19, 2016 Warfarin dosing Date Sep 18-Sep 19 INR 7.54 5.20 3.39 INR change -2.34 -1.81 Warf Dose HOLD HOLD 1 MG A/ INR is still supratherapeutic as of today. Anticipating a drop into therapeutic/subtherapeutic levels tomorrow given trend. P/ Give small dose today to help mitigate the quickly dropping INR. Pharmacy will continue to follow daily. Dereje Manzano Sep 19, 2016 07:14
[2016-09-19] MEDS: Furosemide 10 mg/mL 4 mL Inj IVPUSH SCH ×2 (08:36→20:03)
[2016-09-19] MEDS: Sodium Chloride LOK Flush 10 mL Syringe IVFLUSH SCH ×3 (08:37→23:24)
--- NOTE | 2016-09-19 09:00 | NUR ---
DENIS signed MELLY Pace
--- NOTE | 2016-09-19 09:27 | DRSVH ---
[facility] [address] [place] [address] Echocardiogram Report Name: JEANNA SANABRIA Study Date: 09/18/2016 Height: 68 in Hospital Exam Location: [facility] Weight: 187 lb Gender: Male BSA: 2.0 m2 : 1930 Age: 86 yrs BP: 98/5 5 mmHg Reason For Study: Edema Ordering Physician: HOSPITALIST [facility] Performed By: Vishal Flores Referring Physician: THEO LIVINGSTON Interpretation Summary The left ventricle is normal in size. There is akinesis and thinning of the septum, anterior wall and apex c/w prior LAD infarct. Paradoxical septal motion is consistent with right ventricular volume overload. The ejection fraction is estimated to be 30-35%. There is mild mitral regurgitation. The right ventricle is mildly dilated. There is a pacemaker lead in the right ventricle. Right ventricular systolic function is moderate to severely reduced. There is moderate to severe tricuspid regurgitation. The right ventricular systolic pressure is estimated at 49 mmHg assuming a right atrial pressure of 15 mm Hg. No other echocardiographic abnormalities seen. Procedure: A two-dimensional transthoracic echocardiogram with color flow and Doppler was performed. The study quality was technically difficult. Patient was somnolent and unable to remain still during exam. Comparison is made with the echocardiogram of 08/28/15. Left Ventricle: The left ventricle is normal in size. There is normal left ventricular wall thickness. The ejection fraction is estimated to be 30-35%. There is akinesis and thinning of the septum, anterior wall and apex c/w prior LAD infarct. Paradoxical septal motion is consistent with right ventricular volume overload. Diastolic function could not be accurately assessed due to paced rhythm. Right Ventricle: The right ventricle is mildly dilated. There is a pacemaker lead in the right ventricle. Right ventricular systolic function is moderate to severely reduced. Atria: There is mild biatrial enlargement. There is a catheter/pacemaker lead seen in the right atrium. The interatrial septum is intact with no evidence for an atrial septal defect. Mitral Valve: The mitral valve leaflets are slightly calcified. There is mild mitral annular calcification. There is mild mitral regurgitation. Aortic Valve: The aortic valve is trileaflet. There is mild aortic valve sclerosis. There is no aortic valve stenosis. No aortic regurgitation is present. Tricuspid Valve: The tricuspid valve is not well visualized, but is grossly normal. There is moderate to severe tricuspid regurgitation. The right ventricular systolic pressure is estimated at 49 mmHg assuming a right atrial pressure of 15 mm Hg. Pulmonic Valve: The pulmonic valve is not well visualized. There is a trace or physiologic amount of pulmonic regurgitation. Great Vessels: The aortic root is normal size. The ascending aorta is mildly enlarged. The pulmonary artery is normal size. The IVC is dilated (diameter is greater than 2.1 cm) and it collapses less than 50% with a sniff. This suggests a high right atrial pressure of 15 mm Hg. Pericardium/ Pleura There is no pericardial effusion. There is no pleural effusion. MMode/2D Measurements & Calculations LVIDd: 5.3 cm RA long axis LVOT diam LVIDs: 4.3 cm LA A2 area: 22.4 cm FS: 18.0 % LA A4 area: 21.4 cm RA area AoV Opening EPSS: 1.5 cm LA length (vol): 5.5 cm IVSd: 1.1 cm LA vol: 73.7 ml : 19.0 cm Ao root diam LVPWd: 0.82 cm LA vol index RA vol : 57.4 ml asc Aorta RA Diam: 3.5 cm IVC diam: 2.7 cm : 28.9 mm2 LV carmichael. diameter/BSA LV sys. diameter/BSA (cm/m^2): 2.7 (cm/m^2): 2.2 Doppler Measurements & Calculations Ao V2 max MV E max lionel Med Peak E' Lionel TR max lionel : 109.5 cm/sec : 61.1 cm/sec : 291.2 cm/sec Ao max PG E/E' med: 19.5 TR max PG : 4.8 mmHg : 34.0 mmHg Ao mean PG LVOT Max Lionel : 62.8 cm/sec MELISSA(I,D): 2.2 cm sev ratio Ao V2 mean LV V1 max PG MELISSA indexed to BSA : 73.1 cm/sec (cm^2/m^2): 1.1 Ao V2 VTI: 20.7 cmLV V1 VTI : 10.5 cm MELISSA(V,D): 2.5 cm2 Reading Physician:09:26 AM
--- NOTE | 2016-09-19 10:27 | NUR ---
Social Work- Initial Assessment (Late Note, assessment completed 09/18) Data: See Initial Assessment. Pt is a a 86 year old male admitted 09/17/16 for acute renal failure, lower extremity edema per H&P. Pt's insurance is [facility]. Pt's PCP is Edwina Chavez MD. SW met with pt and at bedside regarding discharge plan, SW role explained. Pt alert and oriented x3. Pt resides in [place] in a two story home where he remains independent with ADLs. Pt remains on one level of his home, does not go downstairs. Pt uses a walker at base. Pt does not drive. Pt has no HH or SNF history. PT evaluation pending at time of assessment. Pt's DPOA paperwork was requested, DPOA is pt's Merna [phone]. Assessment was interrupted, pt then transferred off floor. CHEMICAL PLANT OPERATOR SUPERVISOR unable to complete assessment. New floor CHEMICAL PLANT OPERATOR SUPERVISOR to finish assessment and obtain necessary information for discharge planning. Assessment: Pt who uses a walker at base. Plan: Pt anticipated to discharge home with , floor CHEMICAL PLANT OPERATOR SUPERVISOR to complete assessment and obtain additional information needed for discharge plan. MELLY Bustos Addendum: 09/19/16 at 1031 by TRESA SANDERS Amended: Links added.
[2016-09-19] MEDS: Polyethylene Glycol (PEG) 17 Gm Powder PO PRN (10:32)
--- NOTE | 2016-09-19 11:08 | PCM.PNNEPH ---
Subjective Date of Service Sep 19, 2016 Subjective Patient's had some improvement in his renal function today. He offers no new complaints and denies any chest pain or shortness of breath. His blood pressures have averaged between 80 and 120. In the last 24 hours he had 1964 and 2975 out with 1400 out already this morning. His sodium is 124, potassium 3.9, chloride 82, bicarbonate 19, BUN and creatinine were 89 and 1.74 respectively. His uric acid is 12.3 with a calcium of 8.7. His transferrin saturation is 5%. Urine for eosinophils are pending. Exam Vital Signs Vital Sign - Last Date Time Temp Pulse Resp B/P Pulse Ox O2 Delivery O2 Flow Rate FiO2 09/19/16 08:55 64 09/19/16 08:30 36.5 11 113/52 98 Room Air Intake and Output 09/18/16 09/18/16 09/19/16 Cumulative From/Thru 15:00 23:00 07:00 09/17/16 15:06 - 09/19/16 06:37 Intake Total 816 ml 78 ml 2042 ml Output Total 1400 ml 2975 ml Balance -584 ml 78 ml -933 ml Intake Oral 800 ml 1948 ml IV Total 16 ml 78 ml 94 ml Output Urine Total 1400 ml 2975 ml # Voids 1 # Bowel Movements 0 Exam Neck is supple without adenopathy, thyromegaly, or jugular venous distention. Lungs are clear to auscultation. Heart is regular rhythmical rhythm with a soft systolic murmur. Abdomen is soft without any tenderness or rebound guarding masses or hepatosplenomegaly. Show considerably less edema. Skin turgor is good. Lab and Diagnostics Result Diagram: 09/18/16 0710 09/19/16 0245 X-Rays, CTs and MRIs CXR with no acute cardiopulmonary process. CT ABDOMEN AND PELVIS WITHOUT CONTRAST 09/18 IMPRESSION: 1. Nodular appearance of the liver suspicious for cirrhosis with subsequent mild ascites. 2. Diverticulosis. 3. Mild to moderate stool. Dictated by: Jennifer Jameson M.D. on 09/18/2016 at 7:16 Approved by: Jennifer Jameson M.D. on 09/18/2016 at 7:18 US RENAL SONOGRAM 09/18 IMPRESSION: 1. No acute renal abnormality. No obstruction. Dictated by: Jennifer Jameson M.D. on 09/18/2016 at 15:57 Approved by: Jennifer Jameson M.D. on 09/18/2016 at 15:57 12-lead ECG ventricular paced rhythm, rate of 68, unchanged from 01/05/16 Cardiac Echo Impressions Echocardiogram 08/28/15: Interpretation Summary 1. Normal left ventricular size with normal wall thickness and wall motion abnormalities as noted below. Global EF is reduced with an estimated EF of 30 to 35% 2. Upper limits of normal right ventricular size with mildly reduced systolic function. The estimated RVSP is 79 mm Hg. Evidence for elevated right sided filling pressures. 3. Aortic valve sclerosis without stenosis. Trace insufficiency Plan Impression Impression #1 acute kidney injury secondary to nonsteroidal/drug-induced #2 hyponatremia secondary to #1 #3 number for hyperuricemia Recommendations #1 over to start allopurinol 100 mg once a day. We need to continue to follow his lab. Lan Askew DO Sep 19, 2016 11:08
[2016-09-19] MEDS ORDERED: Iron Sucrose Inj 200 MG in 0.9% Sodium Chloride 100 ML IV ONE (11:40)
--- NOTE | 2016-09-19 13:23 | PROG NOTE ---
[address] [address] PROGRESS NOTE PATIENT: PHIL SANABRIA : 1930 MR#: [id number] ADMIT: 09/17/2016 JOB ID: [id number] DATE: The patient has responded reasonably well to dobutamine therapy and afterload reduction with hydralazine. He is diuresing and his renal function has improved. His echocardiogram shows evidence of fairly extensive anterior NH with an ejection fraction of around 30% to 35%, with significant right ventricular dysfunction and evidence of chronic pulmonary hypertension. Clinically, he has had a rough night. Not sleeping during most of the night. The mentions that he has had problems over the past week with increased restlessness, unable to stay in bed for more than half an hour. It sounds like he may have a history of untreated or undiagnosed restless leg syndrome and his fidgetiness and hyperkinetic actions are suspicious, I think, for possible restless leg syndrome. His sodium level is significantly declined at 124, and yet he has not been fluid restricted and, in fact, was fed a fairly high-salt diet this morning, according to the . His physical exam is otherwise unchanged and the rest of his laboratory work reviewed and unrevealing. DISCUSSION: The patient, I think, is helped with low-dose intravenous dobutamine. His telemetry shows runs of nonsustained VT, which he actually had prior to the dobutamine infusion. He has an ICD in place and so is protected from sustained ventricular tachycardia and I am not inclined to reinitiate beta-juliet therapy at this time. I would like to continue intravenous dobutamine for another day or two in addition to his intravenous Lasix to get him adequately diuresed. He should be significantly fluid restricted to treat his hyponatremia, and consideration should be given perhaps to a trial of low-dose pramipexole for restless leg syndrome, though I would probably be a bit reluctant to start it at this point with his hyponatremia. If he remains restless once his hyponatremia is improved, then I think it would be very reasonable to give him a trial of pramipexole. I am going to go ahead and increase his hydralazine therapy today and not make any other significant changes and will ask the hospitalist service to follow up on his hyponatremia and sleep disorder with the above recommendations.
--- NOTE | 2016-09-19 15:28 | NUR ---
Restlessness Pt continues to be restless. A recliner chair was brought in to his room and several positions were tried to help him find a comfortable position. ordered Venofer (Iron Sucrose) infusion for restless leg syndrome. Pt was infused at 110mls/hour IV. Pt is showing marked improvement in his restlessness, asked to be transferred into bed and appears to be sleeping.
--- NOTE | 2016-09-19 16:22 | PCM.PNMED ---
Subjective Date of Service Sep 19, 2016 Subjective Pleasant 86-year-old man with CKD3, CHF, CAD, [place] 2008, AFib s/p pacemaker, Prostate Cancer s/p radiation presenting with worsening LE edema, fatigue, and weight gain despite outpatient titration of diuretic therapy. Hospital day #3. Overnight, the patient has reported runs of VT, several beats long all throughout the night. Patient is accompanied at bedside by his son-in-law, Gilberto , this morning. The patient reports difficulty sleeping last night. He continues to have swollen lower extremities. Patient is otherwise without other complaints. Exam Vital Signs Vital Sign - Last Date Time Temp Pulse Resp B/P Pulse Ox O2 Delivery O2 Flow Rate FiO2 09/19/16 12:55 36.2 98 12 145/68 99 Room Air Intake and Output 09/18/16 09/18/16 09/19/16 Cumulative From/Thru 15:00 23:00 07:00 09/17/16 15:06 - 09/19/16 06:37 Intake Total 816 ml 78 ml 2042 ml Output Total 1400 ml 2975 ml Balance -584 ml 78 ml -933 ml Intake Oral 800 ml 1948 ml IV Total 16 ml 78 ml 94 ml Output Urine Total 1400 ml 2975 ml # Voids 1 # Bowel Movements 0 Exam General: Patient sitting upright in chair; No acute distress but does not seem comfortable; Restless; well-developed, well-nourished, appropriately interactive HEENT: Normocephalic, atraumatic. External ears without defect. Anicteric sclerae, moist conjunctivae, and no lid lag. Cardiovascular: Irregularly irregular. No murmurs, rubs, or gallops appreciated Pulmonary: Clear to auscultation bilaterally with no crackles, wheezes, or rhonchi. Normal respiratory effort with no use of accessory muscles. Abdomen: Bowel tones present. Soft, nontender, nondistended. Genitourinary: Aranda present Extremities: Bilateral lower extremity pitting edema to thighs Skin:Normal temperature, turgor, and texture; no rash, ulcers, or subcutaneous nodules appreciated. Neurological: Cranial nerves grossly intact. Psychiatric: Normal mood and affect. Alert and oriented to person, place, and time. IVs and Medications Medications Reviewed: Medications were reviewed in detail Lab and Diagnostics Result Diagram: 09/18/16 0710 09/19/16 0245 X-Rays, CTs and MRIs CXR with no acute cardiopulmonary process. CT ABDOMEN AND PELVIS WITHOUT CONTRAST 09/18 IMPRESSION: 1. Nodular appearance of the liver suspicious for cirrhosis with subsequent mild ascites. 2. Diverticulosis. 3. Mild to moderate stool. Dictated by: Jennifer Jameson M.D. on 09/18/2016 at 7:16 Approved by: Jennifer Jameson M.D. on 09/18/2016 at 7:18 US RENAL SONOGRAM 09/18 IMPRESSION: 1. No acute renal abnormality. No obstruction. Dictated by: Jennifer Jameson M.D. on 09/18/2016 at 15:57 Approved by: Jennifer Jameson M.D. on 09/18/2016 at 15:57 12-lead ECG ventricular paced rhythm, rate of 68, unchanged from 01/05/16 Cardiac Echo Impressions Echocardiogram 08/28/15: Interpretation Summary 1. Normal left ventricular size with normal wall thickness and wall motion abnormalities as noted below. Global EF is reduced with an estimated EF of 30 to 35% 2. Upper limits of normal right ventricular size with mildly reduced systolic function. The estimated RVSP is 79 mm Hg. Evidence for elevated right sided filling pressures. 3. Aortic valve sclerosis without stenosis. Trace insufficiency Assessment & Plan Pleasant 86-year-old man with CKD3, CHF, CAD, [place] 2009, AFib s/p pacemaker, Prostate Cancer s/p radiation presenting with worsening LE edema, fatigue, and weight gain despite outpatient titration of diuretic therapy. Hospital day #3. 1. Acute on Chronic systolic CHF with ischemic cardiomyopathy. Present on admission. Active - Carvedilol discontinued. Hydralazine 25mg TID per Cardiology - Continue diuresis with Lasix 80mg IV BID - Continue dobutamine gtt per Cardiology - Telemetry - Cardiology following. Recommendations per Cardiology appreciated 2. Acute on Chronic Kidney Injury, Present on admission. Persistent Etiology likely multifactorial - cardiorenal syndrome and NSAID use - Urinalysis showed no proteinuria or hematuria - Renal ultrasound showed no Hydronephrosis - Avoid nephrotoxic insults such as contrast and dose medications accordingly - Nephrology following. Recommendations per Nephrology appreciated. 3. Acute Hyponatremia. Present on admission. Persists - hypervolemic hyponatremia - Continue diuresis as above - Nephrology following. Recommendations per Nephrology appreciated. 4. Chronic Atrial Fibrillation, Present on admission - s/p AICD on warfarin, supra therapeutic INR. No signs of bleeding - Warfarin dosing per pharmacy 5. Restlessness, chronic. Present on admission - Possibly RLS or related to iron - Venofer 200mg one time. Anticipate Venofer 200mg Q48 hours for one week. 5. Elevated Troponin. Present on admission. - Trending down, from initial 0.054 to 0.040, likely secondary to kidney injury , patient has no sign of cardiac ischemia, but does have CHF with low EF so insult to the heart in the setting of volume overload could be a factor. 6. Thrombocytopenia, acute. Present on admission. Active - Etiology unclear but may suggest cirrhosis - No recent heparin exposure to suggest HIT - Follow with CBC 5.Prostate Cancer, chronic. Present on admission -s/p radiation, reports slow stream worsening gradually over months -Continue Alfuzosin ER 10mg daily 6. Chronic Pain syndrome -PRN Oxycodone 5mg PO BID available, home dosage - Acetaminophen as needed for mild pain/fever/headache - Bowel regimen as needed - Antiemetic as needed Disposition: Currently on dobutamine drip and continuing with diuresis per Cardiology Resuscitation Status: DNR/DNI:Do Not Resuscitate/Intubate Limited Interventions: Medications and IV Fluid (POLST states comfort measures only.) Attending Statement The patient was seen and examined together with Dr. Melara on 09/19/2016 and I agree with the history, exam and plan as outlined in the note above. . Abhay Melara DO Sep 19, 2016 16:22 Dereje Del Rosario MD September 20, 2016 07:38
[2016-09-19] MEDS: Senna-Docusate 8.6-50 mg Tablet PO PRN (19:59)
[2016-09-19] MEDS ORDERED: LORazepam 0.5 mg Tablet PO ONE (23:00)
[2016-09-20] VITALS (8 sets, daily range): BP systolic 97–120; BP diastolic 54–73; PULSE 69–85; RESP 16–24; O2SAT 92–99
[2016-09-20] MEDS ORDERED: Haloperidol 5 mg/mL Inj IM ONE (02:50)
[2016-09-20 03:11] LABS: Mean Corpuscular Hemoglobin 20.2 pg (27.0-35.0); Mean Corpuscular Volume 63.9 fL (81-100)
[2016-09-20 03:29] LABS: BASOPHILS % (AUTO) 0 % (0-3); EOSINOPHILS % (AUTO) 0 % (0-5); MONOCYTES % (AUTO) 2 % (4-12); NEUTROPHILS % (AUTO) 87 % (40-74); Platelet Count 144 bil/L (150-400)
[2016-09-20 03:32] LABS: INR 2.62 ratio
[2016-09-20] MEDS ORDERED: Haloperidol 5 mg/mL Inj IV ONE (04:25)
--- NOTE | 2016-09-20 06:13 | NUR ---
Restless/Delirium/Tele/Skin Pt continuing w/ ongoing restlessness, given one time order of requip at start of shift but this was not effective and pt continued to fidget, constantly moving, sitting and standing. Pt A&Ox3 but very forgetful and at times speaking as if he is home but able to reorient himself when asked about location. notified and order Ativan x1, this was given but also not at all effective. As night progressed pt became increasingly restless and agitated that he could not sleep. He denied pain but stated he "can't turn it off." Even when he closed his eyes and appeared to drift to sleep he would have constant movement. Both resident MDs came to assess pt. At this time MDs notified of increasing consistent and longer runs of VTach and right foot bruising/discoloration, which they also assessed. MD order given for Seroquel. software qa manager also in to assess pt and stated he could be off MP30 to decrease noise in room. Pt now on tele box and walked in mckay for short period to see if this would help w/ restlessness but not effective. Pt given Seroquel and sitter called in due to constant fall risk and increased delirium. Seroquel not effective and pt speaking more nonsense words, no longer oriented to time. MDs notified as pt very impulsive. Haldol IV ordered. Pt now somewhat appearing to sleep though still moving around a lot. MD aware that pt has consistent continuing runs of VTach, 5-10 beats each and MD updated again when he had well over 100 runs during shift and counting. software qa manager also aware and came to assess/reviewed pt cardiology note. electrolytes this morning normal and sodium improving. Pt also Vpacing, does not appear symptomatic or voice symptoms of runs of VTach. No further orders given. Pt did c/o right groin itch and was noted to be very red compared to last night, calmoseptine used to relieve this, will pass on in case Nystatin indicated.
[2016-09-20] MEDS: Polyethylene Glycol (PEG) 17 Gm Powder PO PRN (08:41)
[2016-09-20] MEDS: Senna-Docusate 8.6-50 mg Tablet PO PRN (08:41)
[2016-09-20] MEDS: Furosemide 10 mg/mL 4 mL Inj IVPUSH SCH ×2 (08:42→21:04)
[2016-09-20] MEDS: Sodium Chloride LOK Flush 10 mL Syringe IVFLUSH SCH ×2 (08:43→17:18)
--- NOTE | 2016-09-20 10:41 | PROG NOTE ---
[address] [address] PROGRESS NOTE PATIENT: PHIL SANABRIA : 1930 MR#: [id number] ADMIT: 09/17/2016 JOB ID: [id number] DATE: 09/20/2016 SUBJECTIVE: The patient is an 86-year-old male who suffered an anterior myocardial infarction in 2008. He had dual-chamber ICD implantation in 2009. He developed chronic atrial fibrillation in 2014. His ejection fraction is 30-35%. The right ventricle is mildly dilated with moderate to severely reduced systolic function. Moderate to severe tricuspid regurgitation. Moderate pulmonary hypertension with pulmonary artery systolic pressure of 49 mmHg. He has progressive edema for the past six months, fatigue and weight gain despite increasing dose of furosemide. He was hospitalized on September 17, 2016. He was started on low-dose dobutamine, and carvedilol was discontinued. He responded quite well to low-dose intravenous dobutamine and IV furosemide. His intake and output is negative 2 L for the past three days. His body weight decreased from 85 kg to 82.6 kg. OBJECTIVE: The patient appeared in no acute distress. Temperature is 36.0. Blood pressure is 113/73. Pulse 73. Head and face have normal configuration. Anicteric sclerae. Nech: supple. JVP is 4 cm. No carotid bruit. Chest: Normal expansion. Lungs are clear to auscultation anteriorly. Heart: The first heart sound is variable. The second heart sound is normal. No murmur. Abdomen: Soft, nontender. Bowel sounds diminished. Extremities has 4+ edema up to his knees bilaterally. Neurology: He is confused. BLOOD TESTS: Show hemoglobin 9.5, WBC 14.7, platelets 144. Sodium 130, potassium 4.0, chloride 87, bicarb 22, BUN 77, creatinine 1.39, glucose 142, magnesium 2.0. Tele monitor showed frequent nonsustained ventricular tachycardia on top of chronic atrial fibrillation. IMPRESSION: 1. Predominantly right-sided heart failure. 2. Ischemic cardiomyopathy with ejection fraction 30-35%. 3. Status post dual-chamber implantable cardioverter defibrillator (ICD) implantation in 2009. 4. Chronic atrial fibrillation. 5. Recurrent nonsustained ventricular tachycardia. 6. Slight elevation of troponin, due to volume overload. 7. Hyponatremia. 8. Alcoholic liver cirrhosis. 9. Acute renal insufficiency, improving. 10. Iron-deficiency anemia. 11. Acute confusional state. 12. Possible obstructive sleep apnea. PLAN: I will add isosorbide mononitrate as a preload electromechanical technician to use in combination of hydralazine. I will continue him on low-dose dobutamine as the patient has predominantly right-sided heart failure. I am not concerned about his nonsustained ventricular tachycardia as he has ICD in place. The time spent with the patent, his and medical record review was 60 minutes. ADELAIDA
--- NOTE | 2016-09-20 11:21 | PCM.PHAPRO ---
Progress Date of Service: September 20, 2016 Warfarin dosing Warfarin management per pharmacy Indication: atrial fibrillation INR goal: 2-3 Home warfarin dose: 5 mg on and 2.5 mg all other days of the week. Date Sep 18-Sep 19-Aug 21 INR 7.54 5.20 3.39 2.62 INR change -2.34 -1.81 -0.77 Warf Dose HOLD hold 1 MG XXXX INR is therapeutic but trending down due to held doses (for previously supratherapeutic INR). Give warfarin 2.5 mg PO one time this evening at 1700. Serial INRs have been ordered. Pharmacy to continue to monitor and dose warfarin daily. Thank you, Shannan Taylor Pharmacist Shannan Taylor September 20, 2016 11:21
[2016-09-20] MEDS: DOBUTamine 500 mg/250 D5W 500,000 MCG in IV Premix 1 EACH IV SCH ×2 (11:24→12:39)
[2016-09-20] MEDS: Isosorbide Mononitrate 30 mg ER24 Tablet PO SCH (11:30)
[2016-09-20 12:30] LABS: APPEARANCE,URINE HAZY (CLEAR,HAZY); COLOR,URINE YELLOW (YELLOW); OCCULT BLOOD,URINE MODERATE (NEGATIVE); PH,URINE 5.5 (5.0-8.0); UROBILINOGEN,URINE NORMAL (NORMAL)
--- NOTE | 2016-09-20 14:10 | PCM.PNMED ---
Subjective Date of Service September 20, 2016 Subjective Patient is restless, agitated, speaking randomly. Exam Vital Signs Vital Sign - Last Date Time Temp Pulse Resp B/P Pulse Ox O2 Delivery O2 Flow Rate FiO2 09/20/16 09:08 85 09/20/16 07:45 36.0 24 113/73 92 Nasal Cannula 2.00 Intake and Output 09/19/16 09/19/16 09/20/16 Cumulative From/Thru 15:00 23:00 07:00 09/17/16 15:06 - 09/20/16 05:24 Intake Total 943 ml 960 ml 200 ml 4145 ml Output Total 1400 ml 1050 ml 900 ml 6325 ml Balance -457 ml -90 ml -700 ml -2180 ml Intake Oral 837 ml 900 ml 200 ml 3885 ml IV Total 106 ml 60 ml 260 ml Output Urine Total 1400 ml 1050 ml 900 ml 6325 ml # Voids 1 # Bowel Movements 1 1 Exam General: Not oriented to anything, mild distress, restless Head: Normocephalic, atraumatic. External ears normal. Eyes: PERRLA, EOMI. Anicteric sclerae. Mouth: Mouth Normal, Mucous Membranes Moist/[place] Neck: Neck supple with full range of motion. Chest & Lungs: Clear to auscultation bilaterally with no crackles, wheezes, or rhonchi. Cardiovascular: Heart sounds distant, hard to distinguish Abdomen: Non-tender, Non-distended, No masses, Normoactive bowel tones, Soft Musculoskeletal: Normal Range of Motion Extremities: 2+ bilateral pitting edema to six inches above the knees. reports his legs and ankles are normally very thin. Neurological: Unable to obtain. [place] coma scale is 12 IVs and Medications Medications Reviewed: Medications were reviewed in detail Lab and Diagnostics Result Diagram: 09/20/16 0300 09/20/16 0300 X-Rays, CTs and MRIs CXR with no acute cardiopulmonary process. CT ABDOMEN AND PELVIS WITHOUT CONTRAST 09/18 IMPRESSION: 1. Nodular appearance of the liver suspicious for cirrhosis with subsequent mild ascites. 2. Diverticulosis. 3. Mild to moderate stool. Dictated by: Jennifer Jameson M.D. on 09/18/2016 at 7:16 Approved by: Jennifer Jameson M.D. on 09/18/2016 at 7:18 US RENAL SONOGRAM 09/18 IMPRESSION: 1. No acute renal abnormality. No obstruction. Dictated by: Jennifer Jameson M.D. on 09/18/2016 at 15:57 Approved by: Jennifer Jameson M.D. on 09/18/2016 at 15:57 12-lead ECG ventricular paced rhythm, rate of 68, unchanged from 01/05/16 Cardiac Echo Impressions Echocardiogram 08/28/15: Interpretation Summary 1. Normal left ventricular size with normal wall thickness and wall motion abnormalities as noted below. Global EF is reduced with an estimated EF of 30 to 35% 2. Upper limits of normal right ventricular size with mildly reduced systolic function. The estimated RVSP is 79 mm Hg. Evidence for elevated right sided filling pressures. 3. Aortic valve sclerosis without stenosis. Trace insufficiency 08/2916 Interpretation Summary The left ventricle is normal in size. There is akinesis and thinning of the septum, anterior wall and apex c/w prior LAD infarct. Paradoxical septal motion is consistent with right ventricular volume overload. The ejection fraction is estimated to be 30-35%. There is mild mitral regurgitation. The right ventricle is mildly dilated. There is a pacemaker lead in the right ventricle. Right ventricular systolic function is moderate to severely reduced. There is moderate to severe tricuspid regurgitation. The right ventricular systolic pressure is estimated at 49 mmHg assuming a right atrial pressure of 15 mm Hg. No other echocardiographic abnormalities seen. Assessment & Plan Pleasant 86-year-old man with CKD3, CHF, CAD, [place] 2008, AFib s/p pacemaker, Prostate Cancer s/p radiation presenting with worsening LE edema, fatigue, and weight gain despite outpatient titration of diuretic therapy. Hospital day #3. 1. Acute on Chronic systolic CHF with ischemic cardiomyopathy. Present on admission. Active - Carvedilol discontinued. Hydralazine 25mg TID per Cardiology - Continue diuresis with Lasix 80mg IV BID - Continue dobutamine gtt per Cardiology - Telemetry - Cardiology following. Recommendations per Cardiology appreciated 2. Acute on Chronic Kidney Injury, Present on admission. Improving. Etiology likely multifactorial - cardiorenal syndrome and NSAID use - Urinalysis showed no proteinuria or hematuria - Renal ultrasound showed no Hydronephrosis - Avoid nephrotoxic insults such as contrast and dose medications accordingly - Nephrology following. Recommendations per Nephrology appreciated. 3. Acute Hyponatremia. Present on admission. Persists - hypervolemic hyponatremia - Continue diuresis as above - Nephrology following. Recommendations per Nephrology appreciated. 4. Chronic Atrial Fibrillation, Present on admission - s/p AICD on warfarin, supra therapeutic INR. No signs of bleeding - Warfarin dosing per pharmacy 5. Leukocytosis 14.1, new problem since admission, etiology unclear, infection possibly UTI with Aranda Catheter vs stress reaction -UA reveals large leukocyte esterase and 11-50 WBCs, few bacteria -We will make a decision on treating this today 6. Altered Mental status, restlessness, new problem since admission, secondary to hyperammonionemia with level of 90 in the context of distant history of heavy drinking, thrombocyopenia and AST of 68 vs possible UTI -Lactulose 30mg PO TID -seroquel 12.5mg PO BID and another 12.5mg PO PRN qhs for restlessness 7. Elevated Troponin. Present on admission. - Trending down, from initial 0.054 to 0.040, likely secondary to kidney injury , patient has no sign of cardiac ischemia, but does have CHF with low EF so insult to the heart in the setting of volume overload could be a factor. 8. Thrombocytopenia, acute. Present on admission. Improving - Etiology unclear but may suggest cirrhosis - No recent heparin exposure to suggest HIT - Follow with CBC 9.Prostate Cancer, chronic. Present on admission -s/p radiation, reports slow stream worsening gradually over months -Continue Alfuzosin ER 10mg daily 10. Chronic Pain syndrome -PRN Oxycodone 5mg PO BID available, home dosage - Acetaminophen as needed for mild pain/fever/headache - Bowel regimen as needed - Antiemetic as needed Disposition: Currently on dobutamine drip and continuing with diuresis per Cardiology Pain Evaluation: Adequate Pain Control VTE Prophylaxis: Theraputic Anticoag with Warfarin Resuscitation Status: DNR/DNI:Do Not Resuscitate/Intubate Limited Interventions: Medications and IV Fluid (POLST states comfort measures only.) Attending Statement The patient was seen and examined together with Dr. Guerrero on 09/20/2016 and I agree with the history, exam and plan as outlined in the note above. . Elmer Guerrero DO September 20, 2016 14:10 Dereje Del Rosario MD September 20, 2016 16:58
[2016-09-20] MEDS ORDERED: Lactulose 10 Gm/15 mL 473 mL Solution TUBE SCH (14:30)
--- NOTE | 2016-09-20 14:44 | PCM.PNNEPH ---
Subjective Date of Service September 20, 2016 Subjective The patient responded well with IV diuretics. Hydralazine was added per cardiology. His kidney function continued to improve. Exam Vital Signs Vital Sign - Last Date Time Temp Pulse Resp B/P Pulse Ox O2 Delivery O2 Flow Rate FiO2 09/20/16 09:08 85 09/20/16 07:45 36.0 24 113/73 92 Nasal Cannula 2.00 Intake and Output 09/19/16 09/19/16 09/20/16 Cumulative From/Thru 15:00 23:00 07:00 09/17/16 15:06 - 09/20/16 05:24 Intake Total 943 ml 960 ml 200 ml 4145 ml Output Total 1400 ml 1050 ml 900 ml 6325 ml Balance -457 ml -90 ml -700 ml -2180 ml Intake Oral 837 ml 900 ml 200 ml 3885 ml IV Total 106 ml 60 ml 260 ml Output Urine Total 1400 ml 1050 ml 900 ml 6325 ml # Voids 1 # Bowel Movements 1 1 Exam Lab and Diagnostics Result Diagram: 09/20/16 0300 09/20/16 0300 X-Rays, CTs and MRIs CXR with no acute cardiopulmonary process. CT ABDOMEN AND PELVIS WITHOUT CONTRAST 09/18 IMPRESSION: 1. Nodular appearance of the liver suspicious for cirrhosis with subsequent mild ascites. 2. Diverticulosis. 3. Mild to moderate stool. Dictated by: Jennifer Jameson M.D. on 09/18/2016 at 7:16 Approved by: Jennifer Jameson M.D. on 09/18/2016 at 7:18 US RENAL SONOGRAM 09/18 IMPRESSION: 1. No acute renal abnormality. No obstruction. Dictated by: Jennifer Jameson M.D. on 09/18/2016 at 15:57 Approved by: Jennifer Jameson M.D. on 09/18/2016 at 15:57 12-lead ECG ventricular paced rhythm, rate of 68, unchanged from 01/05/16 Cardiac Echo Impressions Echocardiogram 08/28/15: Interpretation Summary 1. Normal left ventricular size with normal wall thickness and wall motion abnormalities as noted below. Global EF is reduced with an estimated EF of 30 to 35% 2. Upper limits of normal right ventricular size with mildly reduced systolic function. The estimated RVSP is 79 mm Hg. Evidence for elevated right sided filling pressures. 3. Aortic valve sclerosis without stenosis. Trace insufficiency 08/2916 Interpretation Summary The left ventricle is normal in size. There is akinesis and thinning of the septum, anterior wall and apex c/w prior LAD infarct. Paradoxical septal motion is consistent with right ventricular volume overload. The ejection fraction is estimated to be 30-35%. There is mild mitral regurgitation. The right ventricle is mildly dilated. There is a pacemaker lead in the right ventricle. Right ventricular systolic function is moderate to severely reduced. There is moderate to severe tricuspid regurgitation. The right ventricular systolic pressure is estimated at 49 mmHg assuming a right atrial pressure of 15 mm Hg. No other echocardiographic abnormalities seen. Plan Impression 1. Acute kidney injury on chronic kidney disease secondary to coronary artery syndrome and NSAIDs 2. Dilutional hyponatremia due to CHF and liver cirrhosis 3. Decompensated systolic heart failure 4. Chronic atrial fibrillation 5. Altered mental status, suspected hepatic encephalopathy 6. History of pinkeye to cancer status post radiation Plan: 2g Na per day. 1L water restriction per day. continue IV lasix 80 mg q12 hr. Jami Weiss MD September 20, 2016 14:44
[2016-09-20] MEDS ORDERED: Lactulose 20 Gm/30 mL 30 mL Syrup TUBE SCH (15:07)
[2016-09-20] MEDS: Lactulose 20 Gm/30 mL 30 mL Syrup TUBE SCH ×2 (15:28→21:11)
--- NOTE | 2016-09-20 18:04 | NUR ---
Delirium/Ammonia/pain Patient a/o to self, restless and anxious, getting oob intermittently throughout the shift with one person assist. Patient amb to mckay and back with walker, syl [place], but tires easily. Patient c/o pain x 1 Tylenol given with moderate effect. Lactulose started and patient had XLG BM. See vitals. Tele A fib occasionally paced with freq short runs of V tach this a.m. Cardiology in this a.m. and new orders recieved. Patient tele rythmn slightly improved throughout the shift. Family at bedside assists with ADL's Will cont poc.
[2016-09-20] MEDS ORDERED: 0.9% Sodium Chloride 250 ML ONE (20:55)
[2016-09-20] MEDS: cefTRIAXone Inj 2,000 MG in Dextrose 5% Minibag Plus 50 ML IV SCH (21:03)
[2016-09-21] VITALS (8 sets, daily range): BP systolic 107–172; BP diastolic 55–92; PULSE 60–80; RESP 16–24; O2SAT 92–99
[2016-09-21] MEDS: Sodium Chloride LOK Flush 10 mL Syringe IVFLUSH SCH ×3 (00:30→15:32)
--- NOTE | 2016-09-21 03:57 | NUR ---
Confusion/Sitter/Edema Pt confused but easily re-oriented, has periods of jerkiness, restlessness, no C/O pain, Gave 12.5 Mg Seroquel patient seems to have restful periods. Is on room air as pt would not be compliant w any kind of mask on face per Spouse . Has had 2 BM this shift . Aranda catheter draining pale yellow urine to gravity. Sitter in room because of agitation and confusion, Tele: V-Paced , a- fib , PVC's brief runns of V-Tach. unsustained. a-symptomatic .
[2016-09-21 04:19] LABS: Mean Corpuscular Hemoglobin 20.4 pg (27.0-35.0); Mean Corpuscular Volume 64.3 fL (81-100)
[2016-09-21 04:31] LABS: INR 2.63 ratio
[2016-09-21 04:39] LABS: Magnesium 2.1 mg/dL (1.6-2.6); Phosphorus 2.8 mg/dL (2.5-4.9)
[2016-09-21] MEDS: Isosorbide Mononitrate 30 mg ER24 Tablet PO SCH (08:24)
[2016-09-21] MEDS: Furosemide 10 mg/mL 4 mL Inj IVPUSH SCH ×2 (08:24→19:47)
[2016-09-21] MEDS: Lactulose 20 Gm/30 mL 30 mL Syrup TUBE SCH ×3 (08:30→20:18)
--- NOTE | 2016-09-21 09:59 | PCM.PNMED ---
Subjective Date of Service September 21, 2016 Subjective Patient still restless, non-communicative, not oriented. He had a sitter overnight. His reports he is a bit less agitated, but not near baseline which included still paying the bills. She says he was showing intermittent signs of confusion at home. Exam Vital Signs Vital Sign - Last Date Time Temp Pulse Resp B/P Pulse Ox O2 Delivery O2 Flow Rate FiO2 09/21/16 08:14 36.6 80 24 124/64 99 Room Air 09/20/16 07:45 2.00 Intake and Output 09/20/16 09/20/16 09/21/16 Cumulative From/Thru 15:00 23:00 07:00 09/17/16 15:06 - 09/21/16 06:03 Intake Total 77 ml 459 ml 749 ml 5430 ml Output Total 750 ml 1050 ml 8125 ml Balance 77 ml -291 ml -301 ml -2695 ml Intake Oral 400 ml 600 ml 4885 ml IV Total 77 ml 59 ml 149 ml 545 ml Output Urine Total 750 ml 1050 ml 8125 ml # Voids 1 # Bowel Movements 2 2 5 Exam General: Not oriented to anything, mild distress, restless Head: Normocephalic, atraumatic. External ears normal. Eyes: PERRLA, EOMI. Anicteric sclerae. Mouth: Mouth Normal, Mucous Membranes Moist/[place] Neck: Neck supple with full range of motion. Chest & Lungs: Clear to auscultation bilaterally with no crackles, wheezes, or rhonchi. Cardiovascular: Heart sounds distant, hard to distinguish Abdomen: Non-tender, Non-distended, No masses, Normoactive bowel tones, Soft Musculoskeletal: Normal Range of Motion Extremities: 2+ bilateral pitting edema to six inches above the knees. reports his legs and ankles are normally very thin. Neurological: Unable to obtain. Galileo coma scale is 12 IVs and Medications Medications Reviewed: Medications were reviewed in detail Lab and Diagnostics Result Diagram: 09/21/1640909/21/16409 X-Rays, CTs and MRIs CXR with no acute cardiopulmonary process. CT ABDOMEN AND PELVIS WITHOUT CONTRAST 09/18 IMPRESSION: 1. Nodular appearance of the liver suspicious for cirrhosis with subsequent mild ascites. 2. Diverticulosis. 3. Mild to moderate stool. Dictated by: Jennifer Jameson M.D. on 09/18/2016 at 7:16 Approved by: Jennifer Jameson M.D. on 09/18/2016 at 7:18 US RENAL SONOGRAM 09/18 IMPRESSION: 1. No acute renal abnormality. No obstruction. Dictated by: Jennifer Jameson M.D. on 09/18/2016 at 15:57 Approved by: Jennifer Jameson M.D. on 09/18/2016 at 15:57 12-lead ECG ventricular paced rhythm, rate of 68, unchanged from 01/05/16 Cardiac Echo Impressions Echocardiogram 08/28/15: Interpretation Summary 1. Normal left ventricular size with normal wall thickness and wall motion abnormalities as noted below. Global EF is reduced with an estimated EF of 30 to 35% 2. Upper limits of normal right ventricular size with mildly reduced systolic function. The estimated RVSP is 79 mm Hg. Evidence for elevated right sided filling pressures. 3. Aortic valve sclerosis without stenosis. Trace insufficiency 08/2916 Interpretation Summary The left ventricle is normal in size. There is akinesis and thinning of the septum, anterior wall and apex c/w prior LAD infarct. Paradoxical septal motion is consistent with right ventricular volume overload. The ejection fraction is estimated to be 30-35%. There is mild mitral regurgitation. The right ventricle is mildly dilated. There is a pacemaker lead in the right ventricle. Right ventricular systolic function is moderate to severely reduced. There is moderate to severe tricuspid regurgitation. The right ventricular systolic pressure is estimated at 49 mmHg assuming a right atrial pressure of 15 mm Hg. No other echocardiographic abnormalities seen. Assessment & Plan Pleasant 86-year-old man with CKD3, CHF, CAD, [place] 2008, AFib s/p pacemaker, Prostate Cancer s/p radiation presenting with worsening LE edema, fatigue, and weight gain despite outpatient titration of diuretic therapy. Hospital day #5 1. Acute on Chronic systolic CHF with ischemic cardiomyopathy. Present on admission. Active - Carvedilol discontinued. Hydralazine 25mg TID per Cardiology - If renal function is stable in the morning labs, double spironolactone. - Continue dobutamine gtt per Cardiology - Telemetry - Cardiology following. Recommendations per Cardiology appreciated 2. Acute Renal Faiure on CKD3, Present on admission. Improving. Etiology likely multifactorial - cardiorenal syndrome and NSAID use - Urinalysis showed no proteinuria or hematuria - Renal ultrasound showed no Hydronephrosis - Avoid nephrotoxic insults such as contrast and dose medications accordingly - Nephrology following. Recommendations per Nephrology appreciated. 3. Acute Hyponatremia. Present on admission. Persists - hypervolemic hyponatremia - Continue diuresis as above - Nephrology following. Recommendations per Nephrology appreciated. 4. Chronic Atrial Fibrillation, Present on admission - s/p AICD on warfarin, INR is now in therapeutic range, improved from 7.54 on admission - Warfarin dosing per pharmacy 5. UTI, not present on admission, with leukocytosis, improving. Likely secondary to use of Aranda Catheter. -Continue Ceftriaxone IV 6. Hepatic Encephalopathy, restlessness, new problem since admission, improving , hyperammonionemia with level of 90 dropped to 31 this morning. Cirrhosis suspected in the context of nodular appearance of liver on CT, distant history of heavy drinking, thrombocyopenia and AST of 68. UTI contributing to AMS as well. -Lactulose 30mg PO TID -seroquel 12.5mg PO BID and more qhs 12.5mg and 25mg for restlessness. Max evening dose is 50mg. 7. Elevated Troponin. Present on admission. - Trending down, from initial 0.054 to 0.040, likely secondary to kidney injury , patient has no sign of cardiac ischemia, but does have CHF with low EF so insult to the heart in the setting of volume overload could be a factor. 8. Thrombocytopenia, acute. Present on admission. Improving - Etiology unclear but may suggest cirrhosis - No recent heparin exposure to suggest HIT - Follow with CBC 9.Prostate Cancer, chronic. Present on admission -s/p radiation, reports slow stream worsening gradually over months -Continue Alfuzosin ER 10mg daily 10. Chronic Pain syndrome -PRN Oxycodone 5mg PO BID available, home dosage - Acetaminophen as needed for mild pain/fever/headache - Bowel regimen as needed - Antiemetic as needed Disposition: Currently on dobutamine drip and continuing with diuresis per Cardiology Pain Evaluation: Adequate Pain Control VTE Prophylaxis: Theraputic Anticoag with Warfarin VTE Mechanical Devices: Intermittant Pneumatic CD Resuscitation Status: DNR/DNI:Do Not Resuscitate/Intubate Limited Interventions: Medications and IV Fluid (POLST states comfort measures only.) Attending Statement The patient was seen and examined together with Dr. Guerrero on 09/21/2016 and I agree with the history, exam and plan as outlined in the note above. . Elmer Guerrero DO September 21, 2016 09:59 Dereje Del Rosario MD September 27, 2016 08:39
--- NOTE | 2016-09-21 10:12 | PCM.PHAPRO ---
Progress Date of Service: September 21, 2016 Warfarin dosing Warfarin management per pharmacy Indication: atrial fibrillation INR goal: 2-3 Home warfarin dose: 5 mg on Tu and 2.5 mg all other days of the week. Date Sep 18-Sep 19-Aug 21-September 21-September INR 7.54 5.20 3.39 2.62 2.63 INR change -2.34 -1.81 -0.77 0.01 Warf Dose HOLD hold 1 MG 2.5 MG xxxxx INR is therapeutic and stable. Give warfarin 2.5 mg PO one time this evening at 1700. Serial INRs have been ordered. Pharmacy to continue to monitor and dose warfarin daily. Thank you, Shannan Taylor Pharmacist Shannan Taylor September 21, 2016 10:12
--- NOTE | 2016-09-21 10:52 | PCM.PNNEPH ---
Subjective Date of Service September 21, 2016 Subjective confused, on lactulose for HE, (+) diarrhea. on IV dobutamine as per joiners supervisor. Kidney function continues to improve. Exam Vital Signs Vital Sign - Last Date Time Temp Pulse Resp B/P Pulse Ox O2 Delivery O2 Flow Rate FiO2 09/21/16 10:27 72 09/21/16 08:14 36.6 24 124/64 99 Room Air 09/20/16 07:45 2.00 Intake and Output 09/20/16 09/20/16 09/21/16 Cumulative From/Thru 15:00 23:00 07:00 09/17/16 15:06 - 09/21/16 06:03 Intake Total 77 ml 459 ml 749 ml 5430 ml Output Total 750 ml 1050 ml 8125 ml Balance 77 ml -291 ml -301 ml -2695 ml Intake Oral 400 ml 600 ml 4885 ml IV Total 77 ml 59 ml 149 ml 545 ml Output Urine Total 750 ml 1050 ml 8125 ml # Voids 1 # Bowel Movements 2 2 5 Exam GA: confused, oriented x1 (place). Heart: paced rhythm, S1/S2. no murmur. Lungs: CTA, B/L Abd: soft, NT, mild distension, active BS. Ext: 2+ edema. : dunn cath in place. Lab and Diagnostics Result Diagram: 09/21/1640909/21/16409 X-Rays, CTs and MRIs CXR with no acute cardiopulmonary process. CT ABDOMEN AND PELVIS WITHOUT CONTRAST 09/18 IMPRESSION: 1. Nodular appearance of the liver suspicious for cirrhosis with subsequent mild ascites. 2. Diverticulosis. 3. Mild to moderate stool. Dictated by: Jennifer Jameson M.D. on 09/18/2016 at 7:16 Approved by: Jennifer Jameson M.D. on 09/18/2016 at 7:18 US RENAL SONOGRAM 09/18 IMPRESSION: 1. No acute renal abnormality. No obstruction. Dictated by: Jennifer Jameson M.D. on 09/18/2016 at 15:57 Approved by: Jennifer Jameson M.D. on 09/18/2016 at 15:57 12-lead ECG ventricular paced rhythm, rate of 68, unchanged from 01/05/16 Cardiac Echo Impressions Echocardiogram 08/28/15: Interpretation Summary 1. Normal left ventricular size with normal wall thickness and wall motion abnormalities as noted below. Global EF is reduced with an estimated EF of 30 to 35% 2. Upper limits of normal right ventricular size with mildly reduced systolic function. The estimated RVSP is 79 mm Hg. Evidence for elevated right sided filling pressures. 3. Aortic valve sclerosis without stenosis. Trace insufficiency 08/2916 Interpretation Summary The left ventricle is normal in size. There is akinesis and thinning of the septum, anterior wall and apex c/w prior LAD infarct. Paradoxical septal motion is consistent with right ventricular volume overload. The ejection fraction is estimated to be 30-35%. There is mild mitral regurgitation. The right ventricle is mildly dilated. There is a pacemaker lead in the right ventricle. Right ventricular systolic function is moderate to severely reduced. There is moderate to severe tricuspid regurgitation. The right ventricular systolic pressure is estimated at 49 mmHg assuming a right atrial pressure of 15 mm Hg. No other echocardiographic abnormalities seen. Plan Impression 1. Acute kidney injury on chronic kidney disease secondary to coronary artery syndrome and NSAIDs 2. Dilutional hyponatremia due to CHF and liver cirrhosis 3. Decompensated systolic heart failure 4. Chronic atrial fibrillation 5. Altered mental status, suspected hepatic encephalopathy 6. History of pinkeye to cancer status post radiation Plan: decrease lasix to 40 mg Q 12hr. add aldactone 25 mg daily. add KCL 40 meq IVPB x1. Jami Weiss MD September 21, 2016 10:51
--- NOTE | 2016-09-21 11:05 | NUR ---
Palliative Care Palliative Care received verbal order from Dr Del Rosario 09/21/16 to assist with goals of care. Patient is an 86 year old man with CKD3, CHF, CAD ([place] 2008), afib and hx of prostate cancer. He was admitted 09/17/16. Patient lives at home with is . Merna Toneysaumya () [phone] Kiya Corderokrisssabrina (daughter) [phone] Palliative Care to follow. Dina Buitrago
[2016-09-21] MEDS ORDERED: DOBUTamine 500 mg/250 D5W 500,000 MCG in IV Premix 1 EACH IV SCH (11:20)
--- NOTE | 2016-09-21 11:59 | PROG NOTE ---
[address] [address] PROGRESS NOTE PATIENT: PHIL SANABRIA : 1930 MR#: [id number] ADMIT: 09/17/2016 JOB ID: [id number] DATE: 09/21/2016 SUBJECTIVE: The patient remains confused. He seemed to be a little better according to his family. OBJECTIVE: Temperature is 36.6. Blood pressure is 119/55. Pulse 72. Body weight is 83.9 kg. Intake and output is -914 mL yesterday. Anicteric sclerae. Dry mucosa. Neck: No JVP. Chest: Normal expansion. Lungs are clear to auscultation anteriorly. Heart: The first heart sound is variable. Second heart sound is normal. No murmur. Abdomen: Soft. Nontender. Extremities: 3+ edema. Blood tests show hemoglobin 9.2, WBC 13.0, platelets 110. Sodium 130, potassium 3.2, chloride 88, bicarb 25, BUN 62, creatinine 1.19, glucose 129. Albumin 3.4. Amylase came down from 90 to 31. IMPRESSION: 1. Predominantly right-sided heart failure. 2. Ischemic cardiomyopathy with ejection fraction 30% to 35%. 3. Status post dual-chamber implantable cardioverter defibrillator implantation in 2009. 4. Chronic atrial fibrillation. 5. Recurrent nonsustained ventricular tachycardia, improved. 6. Acute confusional state, due to hepatic encephalopathy and possible urinary tract infection. 7. Hyponatremia. 8. Alcoholic liver cirrhosis. 9. Acute renal insufficiency, improving. 10. Iron deficiency anemia. 11. Possible obstructive sleep apnea. PLAN: I will continue the patient on low-dose dobutamine, hydralazine and nitrates for treatment of his heart failure. Potassium supplement will be given in order to maintain potassium level above 4.0. If his kidney function remains stable, the dose of spironolactone will be increased tomorrow. MTDD
[2016-09-21] MEDS: Sodium Chloride NAS 45 mL Spray NASAL SCH ×2 (12:57→19:47)
--- NOTE | 2016-09-21 13:37 | NUR ---
NUTRITION ASSESSMENT: ASSESS: Pt is an 86yo M admitted for CECILY and worsening edema. Nephrology and cardiology are following. Pt has been experiencing increased confusion, likely related to hepatic encephalopathy. Palliative care has been consulted for goals of care. He is currently on a Heart Healthy diet w/1000ml fluid restriction. PO has been fair at ~50-100% of meals. PMHX: CKD stg3, CHF, CAD, [place], Prostate ca LABS: Reviewed. Na 130, K 3.2, Cl 88, Bun 62, Glu 129, t.bili 1.7, AST 77, Alb 3.4 MEDS: Reviewed. lactulose GI: BMx2 09/21 SKIN: Chaz 22, no major issues CURRENT WTS: 83.9kg, BMI 28.1kg/m2, admit wt 85kg DIET: Heart Healthy, 1000ml fluid restriction. PO 50-100% EST. NEEDS: CECILY Kcals: 1845-2100kcal/day (22-25kcal/kg) Pro: 65-80g/day (0.8-1.0g/kg) Fluids: 1000ml/day NUTRITION DIAGNOSIS: 1.) Altered nutrition related lab values related to CECILY as evidence by elevated BUN/head orthopedic team physician NUTRITION INTERVENTION: 1.) Continue current diet. Will not add supplements at this time due to fluid restriction. MONITOR / EVAL: PO, wt, labs, gi, POC, nutrition status. Will continue to monitor per moderate nutrition risk guidelines
--- NOTE | 2016-09-21 17:08 | NUR ---
Activity/Mentation Patient calm and cooperative. A&Ox3, but impulsive and does not always follow commands. Patient resting with eyes closed for much of shift, however, he is constantly fidgeting even during rest periods. Sitter DC'd around noon. and bedside, sahil alarm on and call light within reach for safety.
[2016-09-21] MEDS: cefTRIAXone Inj 2,000 MG in Dextrose 5% Minibag Plus 50 ML IV SCH (17:43)
--- NOTE | 2016-09-21 17:50 | PCM.CONPAL ---
Date of Service September 21, 2016 Date of Hospital Admission: Sep 17, 2016 at 18:05 Date of Palliative Consult: September 21, 2016 Requesting Provider: Elmer Guerrero DO Reason Palliative Care Consult: Other Symptoms (agitation), Goals of Care Discussion Hospital Unit @time of consult: Progressive Care Palliative Care Recommendation Summary of palliative recommendations: -Symptom management (Pain/other) Dyspnea and edema. Secondary to biventricular CHF. Acute renal failure most likely a combination of heart failure as well as NSAID- now improved Agitation in his sleep at least some appearing RLS. Also appears to have baseline agitation Reviewed options of treating RLS. concerned regarding pramipexole with caution on accelerating addiction. He did not find benefit from oxycodone although low-dose He has used gabapentin in the past and will consider this low dose at bedtime -some caution due to his profound edema Goals of care-patient and his had discussion with Dr. jama completing POLST in 2014 requesting DO NOT RESUSCITATE status. Reviewed issue of having an active defibrillator and the potential discomfort at end of life. Patient's believes he would want it deactivated. Dr. Valentine notified and he recommends doing this as an outpatient- -DPOA/Advanced Directives/POLST-DO NOT RESUSCITATE DO NOT INTUBATE no tube feeding, DURABLE POWER OF NEGATIVE CUTTER for healthcare and advanced directives completed-copies not available -Family/emotional support-extensive family support and support from friends. His is recognizing need for more assistance at home Discussion almost exclusively with his since patient is very somnolent and not able to engage in conversation. He has been mentally he is due to until this acute illness. We will review again tomorrow. In the meantime he is not decisional and his [facility] Additional Medical Diagnoses with primary management by Hospitalist team include : CHF Agitation ARF- improved ? cirrhosis- cardiac vs very distant ETOH Problems: End of Life Preferences DNR/DNI Disposition Goal is to return home hopefully with some more assistance for Resuscitation Status Resuscitation Status: DNR/DNI:Do Not Resuscitate/Intubate Limited Interventions: Medications and IV Fluid (POLST states comfort measures only.) POLST Updates/Changes Previous POLST?: Yes Artificially Admin Nutrition: No Artifical Nutrition by Tube POLST Discussed with: Health Care Agent (DPOA[facility]) POLST Review Outcome: No Change . Pain: Moderate Symptom management: Anxiety, Agitation, Dyspnea, Delirium Pt History History of Present Illness Pleasant 86yo man with history of CKD3, CHF, CAD, [place] 2008, AFib s/p pacemaker, Prostate Cancer s/p radiation in 2007 presented to the ED on the suggestion of his PCP, Dr Chavez after being seen earlier today for worsening LE edema, fatigue, and weight gain despite an increase in his Furosemide last week by his wooden barrel mechanic, Dr Valentine. In the ER he had an EKG revealing a ventricular paced rhythm, rate of 68, unchanged from 01/05/16, unremarkable CXR. No intervention or therapy was done in the ER. He has gained 20lbs in 4 weeks and 4lbs in the last week after the increase of his Furosemide to 60mg PO BID. He also complains of pain in his finger tips, urinating often but not very much, chronic intermittent pain in his neck and shoulders, fairly stable SMITH. He denies orthopnea, but his reports he does stop breathing at night for as long as 30 seconds and then gasps without waking. Palliative care consult: Requesting provider PCP Dr. Chavez Reinsurance Analyst- Dr. Valentine Prior to consultation chart is reviewed and discussed with hospital team. Case also reviewed with Dr. Dailey, Dr. Valentine. History taken from the chart as well as his . Patient is in bed difficult to arouse and moderately agitated 86-year-old gentleman with known biventricular CHF with particular note of pulmonary hypertension EF of 30-35%, past history of WA A. fib pacemaker placement and an AICD. His defibrillator has never discharged. He was admitted for increasing edema and weight gain over the time period of a few weeks. He has baseline significant SMITH which had progressed only over the past week. He usually walks with a walker. He has chronic shoulder pain and was given oxycodone which she took one half tablet at bedtime without benefit. He then tried these- unclear his dosing but his thinks at least 2 tablets a day for probably a week prior to this admission. When he was seen in the emergency room he had edema which is new for him as well as increased restlessness and some agitation significant shortness of breath and note of a creatinine of 2.78 with a BUN of 99. His diuretic had been increased in an attempt to deal with his increasing edema. With his hospitalization NSAID was discontinued he is put on a dobutamine drip and given furosemide. His creatinine has now normalized to 1.19. His proBNP started at almost 27,000 and has now decreased to 12,700. He continues to have significant edema. He has a history of hypertension and atrial fibrillation prostate CA status post radiation therapy in 2007 as well as mild diabetes with an A1c of 6.8. There is note of either cirrhosis versus fatty liver on his CT scan and he has a history of elevated liver function tests for number of years CODE STATUS was discussed with and POLST was completed in 2014 DNR/DNI /no FT and comfort measures. 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 Past Medical History Significant PMH Noted: PMH Myocardial infarction - Anterior WA CHF (systolic), EF 25% by echo in 2013 Hx Pulm HTN on ECHO Past hx of ETOH abuse Chronically elevated LFT Anemia BPH with urinary frequency history of diverticulitis arthritis Cholecystitis History of perforated gastric ulcer 1967 History of peripheral vascular disease History of prostate CA History of peripheral vascular disease History of atrial fibrillation, now a pacemaker Coronary artery disease Diabetes mellitus Hyperlipidemia Hypertension Surgical History Biventricular AICD left knee surgery perforated ulcer repair 1966 intestinal resection PTCA and stenting LAD Cardiac ablation for A. fib/flutter Appendectomy Pacemaker insertion Cholecystectomy Family History Father at age 83 from stomach cancer Mother at age 86 with a heart valve problem and dementia Social History Occupation: Retired newsstand vendor brand marketing specialist, retired newsstand vendor Family Members Issues: to present 20 years. Blended family with patient having 5 daughters from prior marriage. His first of cancer. Social Support: Extensive with large family very supportive and friends in the community Living Situation: Lives with his of 20 years Responsive Patient Symptoms Pain (maximium): Moderate (primarily shoulder) Tiredness/Fatigue: Moderate Nausea: Mild Depression: None Anxiety: Moderate (long history of anxiety treated with clonazepam and Paxil in the past) Drowsiness/Sleepiness: Mild (naps 1-2 hours daytime) Shortness of Breath: Moderate (chronic shortness of breath GOE with minimal exertion) Delirium Has been having more agitation at night. Long history of what sounds like RLS but now to the point of kicking himself out of bed. He has fallen a few times but able to get up with the assistance of his and the chair His describes either Luis E-Eden or BRANDON breathing Other Urinary frequency Variable sleep with nocturia 3-4 times per night Increasing edema Over the past month- not changing with diuresing Palliative Performance Scale PPS Patient Status: Baseline PPS Ambulation: Reduced PPS Activity: Unable to do most activity PPS Self-Care: Occasional assistance necessary PPS Intake: Normal or reduced PPS Conscious Level: Full or confusion (only recently noting some cognitive impairment otherwise has been managing his own affairs and the finances of the house) Performance Scale: 70% Allergy Allergies Reviewed: Yes Medications Current Medications: Current Medications Quetiapine Fumarate 25 mg HS PO; Start 09/20/16 at 21:00; Stop 09/20/16 at 21:00; Status DC Quetiapine Fumarate 25 mg HS PO Last administered on 09/20/16 01:17; Admin Dose 25 MG; Start 09/20/16 at 00:55; Stop 09/20/16 at 14:26; Status DC Isosorbide Mononitrate 30 mg 0730 PO Last administered on 09/21/16 08:24; Admin Dose 30 MG; Start 09/20/16 at 10:07 Ferrous Sulfate 325 mg DAILY PO Last administered on 09/21/16 08:24; Admin Dose 325 MG; Start 09/20/16 at 10:08 Lactulose 30 gm TID TUBE; Start 09/20/16 at 14:30; Stop 09/20/16 at 15:06; Status DC Quetiapine Fumarate 12.5 mg BID PO Last administered on 09/21/16 08:25; Admin Dose 12.5 MG; Start 09/20/16 at 20:30 Quetiapine Fumarate 12.5 mg HS PRN PO; Start 09/20/16 at 14:25 Lactulose 30 gm TID TUBE Last administered on 09/20/16 15:09; Admin Dose 30 GM; Start 09/20/16 at 15:07; Stop 09/20/16 at 15:28; Status DC Lactulose 30 gm 30 gm TID TUBE Last administered on 09/20/16 21:11; Admin Dose 30 GM; Start 09/20/16 at 15:28 Ceftriaxone Sodium/Dextrose/ Water 50 ml @ 100 mls/hr Q24H IV Last administered on 09/20/16 21:03; Admin Dose 100 MLS/HR; Start 09/20/16 at 18:30; Stop 09/23/16 at 20:00 Spironolactone 25 mg DAILY PO Last administered on 09/21/16 10:03; Admin Dose 25 MG; Start 09/21/16 at 09:00 Sodium Chloride 2 spray 2 spray BID NASAL Last administered on 09/21/16 12:57; Admin Dose 2 SPRAY; Start 09/21/16 at 09:50 Dobutamine HCl/ Dextrose/Premix 250 ml @ 6.29 mls/hr Q24H IV Last administered on 09/21/16 11:33; Admin Dose 6.29 MLS/HR; Start 09/21/16 at 11:20 Scheduled Alfuzosin ER (Alfuzosin ER) 10 Mg Tab.er.24h 10 MG PO QAM Calcium Carbonate/Vitamin D3 (Calcium 600 + Vit D3 Tablet) 1 Each Tablet 1 EACH PO BID Carvedilol (Carvedilol) 3.125 Mg Tablet 3.125 MG PO BID Furosemide (Furosemide) 20 Mg Tab 60 MG PO BID Magnesium Oxide (Magnesium) 400 Mg Capsule 400 MG PO BID Spironolactone (Spironolactone) 25 Mg Tablet 12.5 MG PO QAM Warfarin Sodium (Warfarin Sodium) 5 Mg Tablet 2.5 MG PO DAILY except Warfarin Sodium (Warfarin Sodium) 5 Mg Tablet 5 MG PO Q Tuesday Scheduled PRN Nitroglycerin SL (Nitrostat) 0.4 Mg Tab.subl 0.4 MG SL Q5MIN PRN PRN For Chest Pain oxyCODONE (oxyCODONE) 5 Mg Tablet 5 MG PO BID PRN PRN For Pain Objective Findings Exam Vital Sign - Last Date Time Temp Pulse Resp B/P Pulse Ox O2 Delivery O2 Flow Rate FiO2 09/21/16 12:07 36.3 72 22 110/63 98 Room Air 09/20/16 07:45 2.00 Intake and Output 09/20/16 09/20/16 09/21/16 Cumulative From/Thru 15:00 23:00 07:00 09/17/16 15:06 - 09/21/16 06:03 Intake Total 77 ml 459 ml 749 ml 5430 ml Output Total 750 ml 1050 ml 8125 ml Balance 77 ml -291 ml -301 ml -2695 ml Intake Oral 400 ml 600 ml 4885 ml IV Total 77 ml 59 ml 149 ml 545 ml Output Urine Total 750 ml 1050 ml 8125 ml # Voids 1 # Bowel Movements 2 2 5 General: Minimally responsive (agitated flailing in bed then calm only to have frequent movement of legs and eventually active agitation with yelling out), Agitated HEENT: PERRLA, EOMI, Scleral Anicteric Heart: Dysrhythmia Present Lungs: Clear to Auscultation Abdomen: Soft Neuro: Other (agitation as noted above as well as PLMD) Extremities: Edema (3+, petechial bruising particularly on the right foot. Toes are hyper extended) Lab/Diagnostics Lab and Imaging results reviewed in detail in EMR. Patient/Family Conference Members Present Family Members Present [facility] Medical Team Members PresentSingh LEACH Discussion/Goals of Care Discussion FAMILY UNDERSTANDING OF DISEASE: His has noticed gradual deterioration but then acute deterioration over the past few weeks. He has baseline moderately severe SMITH. His care demands are increasing and with recent fall his is very hesitant to leave him alone. Since agitation and hospital even more taxing on his . She describes trying very hard to blend his 5 daughters into the family that they built. She defines that DURABLE POWER OF NEGATIVE CUTTER for healthcare she is #1 Only recently noting some cognitive decline. DISEASE PROGRESSION/EVIDENCE OF DECLINE: SYMPTOM BURDEN: Dyspnea urinary frequency poor sleep-for the patient, increasing burnout for his . His states that he rallies when his children visit only to need 3 days to recover. His daughters lives between [facility] and [place] GOALS: Their goal is to return home and maintain independence as much as possible HOPES/WORRIES: His is recognizing need for additional caregiving Palliative Care counselled: Time spent Total time 80 minutes; >50% face to face with patient and/or family, providing counselling regarding plans and recommendations, and in care coordination with his/her medical teams. Time includes chart review and discussion with his examination of patient discussion with hospital team as well as cardiology Review and discussion regarding possible deactivation of AICD I also spent an additional [ ] minutes counseling for advanced care planning with the patient/the patients family/the surrogate decision maker. copies to: Edwina Chavez MD; Keanu Valentine MD, Deborah A MD September 21, 2016 17:50
--- NOTE | 2016-09-22 01:03 | NUR ---
Passing Pt had mild agitation and then periods of somnolence, seemed A&O x3 at times , then at approximately 2255, his heard quit beating , monitoring engineer notified RN , Dr and nurses were called into the room , Hospitalist determined there was nothing further to be done, RN Notified Family .
--- NOTE | 2016-09-25 17:56 | PCM.DC.MED ---
Discharge Summary Date of Service September 25, 2016 Dates of Hospitalization Date of Hospital Admission Sep 17, 2016 at 18:05 Date of Discharge: September 21, 2016 Providers: Admitting Physician: Dereje Del Rosario MD Primary Care Physician: Edwina Chavez MD Attending Physician: Dereje Del Rosario MD Diagnosis at Time of Discharge Diagnosis at Time of Discharge , Acute on Chronic Systolic Heart Failure, Acute on Chronic Renal Failure, Acute Hyponatremia, Chronic Atrial Fibrillation, Urinary Tract Infection, Hepatic Encephalopathy Consultations Samy Cardoza M.D., Cardiology Wojciech Weiss M.D. Nephrology Brian Patel, Cardiology Lan Askew D.O. nephrology Procedures XRay, CTs & MRIs CXR with no acute cardiopulmonary process. CT ABDOMEN AND PELVIS WITHOUT CONTRAST 09/18 IMPRESSION: 1. Nodular appearance of the liver suspicious for cirrhosis with subsequent mild ascites. 2. Diverticulosis. 3. Mild to moderate stool. US RENAL SONOGRAM 09/18 IMPRESSION: 1. No acute renal abnormality. No obstruction. ECG 12 Lead ventricular paced rhythm, rate of 68, unchanged from 01/05/16 Cardiac Echo Impression Echocardiogram 08/28/15: Interpretation Summary 1. Normal left ventricular size with normal wall thickness and wall motion abnormalities as noted below. Global EF is reduced with an estimated EF of 30 to 35% 2. Upper limits of normal right ventricular size with mildly reduced systolic function. The estimated RVSP is 79 mm Hg. Evidence for elevated right sided filling pressures. 3. Aortic valve sclerosis without stenosis. Trace insufficiency 08/2916 Interpretation Summary The left ventricle is normal in size. There is akinesis and thinning of the septum, anterior wall and apex c/w prior LAD infarct. Paradoxical septal motion is consistent with right ventricular volume overload. The ejection fraction is estimated to be 30-35%. There is mild mitral regurgitation. The right ventricle is mildly dilated. There is a pacemaker lead in the right ventricle. Right ventricular systolic function is moderate to severely reduced. There is moderate to severe tricuspid regurgitation. The right ventricular systolic pressure is estimated at 49 mmHg assuming a right atrial pressure of 15 mm Hg. No other echocardiographic abnormalities seen. Brief History Pleasant 86yo man with history of CKD3, CHF, CAD, PA 2008, AFib s/p pacemaker, Prostate Cancer s/p radiation in 2007 presented to the ED on the suggestion of his PCP, Dr Chavez after being seen earlier today for worsening LE edema, fatigue, and weight gain despite an increase in his Furosemide last week by his machine ii cutter, Dr Valentine. In the ER he had an EKG revealing a ventricular paced rhythm, rate of 68, unchanged from 01/05/16, unremarkable CXR. No intervention or therapy was done in the ER. He has gained 20lbs in 4 weeks and 4lbs in the last week after the increase of his Furosemide to 60mg PO BID. He also complains of pain in his finger tips, urinating often but not very much, chronic intermittent pain in his neck and shoulders, fairly stable SMITH. He denies orthopnea, but his reports he does stop breathing at night for as long as 30 seconds and then gasps without waking. Palliative care consult: Requesting provider PCP Dr. Chavez Dietary Aid- Dr. Valentine Prior to consultation chart is reviewed and discussed with hospital team. Case also reviewed with Dr. Dailey, Dr. Valentine. History taken from the chart as well as his . Patient is in bed difficult to arouse and moderately agitated 86-year-old gentleman with known biventricular CHF with particular note of pulmonary hypertension EF of 30-35%, past history of PA A. fib pacemaker placement and an AICD. His defibrillator has never discharged. He was admitted for increasing edema and weight gain over the time period of a few weeks. He has baseline significant SMITH which had progressed only over the past week. He usually walks with a walker. He has chronic shoulder pain and was given oxycodone which she took one half tablet at bedtime without benefit. He then tried these- unclear his dosing but his thinks at least 2 tablets a day for probably a week prior to this admission. When he was seen in the emergency room he had edema which is new for him as well as increased restlessness and some agitation significant shortness of breath and note of a creatinine of 2.78 with a BUN of 99. His diuretic had been increased in an attempt to deal with his increasing edema. With his hospitalization NSAID was discontinued he is put on a dobutamine drip and given furosemide. His creatinine has now normalized to 1.19. His proBNP started at almost 27,000 and has now decreased to 12,700. He continues to have significant edema. He has a history of hypertension and atrial fibrillation prostate CA status post radiation therapy in 2007 as well as mild diabetes with an A1c of 6.8. There is note of either cirrhosis versus fatty liver on his CT scan and he has a history of elevated liver function tests for number of years CODE STATUS was discussed with and POLST was completed in 2015 DNR/DNI /no FT and comfort measures. 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 Hospital Course Pleasant 86-year-old man with CKD3, CHF, CAD, PA 2008, AFib s/p pacemaker, Prostate Cancer s/p radiation presenting with worsening LE edema, fatigue, and weight gain despite outpatient titration of diuretic therapy. Hospital day #5 1. Acute on Chronic systolic CHF with ischemic cardiomyopathy. Present on admission. Active - Carvedilol discontinued. Hydralazine 25mg TID per Cardiology - Continued dobutamine gtt per Cardiology - Telemetry - Cardiology following. Recommendations per Cardiology appreciated 2. Acute Renal Faiure on CKD3, Present on admission. Improving. Etiology likely multifactorial - cardiorenal syndrome and NSAID use - Urinalysis showed no proteinuria or hematuria - Renal ultrasound showed no Hydronephrosis - Avoiding nephrotoxic insults such as contrast and dose medications accordingly - Nephrology following. Recommendations per Nephrology appreciated. 3. Acute Hyponatremia. Present on admission. Persists - hypervolemic hyponatremia - Continued diuresis as above - Nephrology following. Recommendations per Nephrology appreciated. 4. Chronic Atrial Fibrillation, Present on admission - s/p AICD on warfarin, INR is now in therapeutic range, improved from 7.54 on admission - Warfarin dosing per pharmacy 5. UTI, not present on admission, with leukocytosis, improving. Likely secondary to use of Aranda Catheter. -Continued Ceftriaxone IV 6. Hepatic Encephalopathy, restlessness, new problem since admission, improving , hyperammonionemia with level of 90 dropped to 31 on the second morning. Cirrhosis was suspected in the context of nodular appearance of liver on CT, distant history of heavy drinking, thrombocyopenia and AST of 68. UTI contributing to AMS as well. -Lactulose 30mg PO TID -Seroquel 12.5mg PO BID and more qhs 12.5mg and 25mg for restlessness. Max evening dose is 50mg. 7. Elevated Troponin. Present on admission. - Trended down, from initial 0.054 to 0.040, likely secondary to kidney injury, patient has no sign of cardiac ischemia, but does have CHF with low EF so insult to the heart in the setting of volume overload could be a factor. 8. Thrombocytopenia, acute. Present on admission. Improving - Etiology unclear but may suggest cirrhosis - No recent heparin exposure to suggest HIT - Follow with CBC 9.Prostate Cancer, chronic. Present on admission. Stable -s/p radiation, reports slow stream worsening gradually over months -Continue Alfuzosin ER 10mg daily 10. Chronic Pain syndrome -PRN Oxycodone 5mg PO BID available, home dosage at 22:55 on September 21, 2016: Cessation of heartbeat secondary to acute on chronic systolic heart failure with multiple co-morbidities. Exam Vital Signs (Last) Date Time Temp Pulse Resp B/P Pulse Ox O2 Delivery O2 Flow Rate FiO2 09/21/16 20:00 75 09/21/16 19:45 Supplement Oxygen 09/21/16 19:25 37.0 16 117/70 97 09/20/16 07:45 2.00 Test 09/17/16 16:03 09/17/16 19:40 09/18/16 01:55 09/18/16 12:05 Hemoglobin A1c 6.8% (4.8-5.6) Hold [place] Top Tube Received (Received) Urine Random Creatinine 59mg/dL (22-328) Urine Urea Nitrogen 541mg/dL (Not Estab.) Troponin T 0.040ug/L (0.0-0.011) Hold Urine Received (Received) Test 09/19/16 02:45 09/20/16 03:00 09/20/16 12:05 09/21/16 04:10 Uric Acid 12.3mg/dL (2.6-7.2) Iron Level 21ug/dL (35-150) Total Iron Binding Capacity 448ug/dL (250-450) Percent Iron Saturation 5%sat (15-50) Unsaturated Iron Binding 427.1ug/dL Globulin (PEP) 2.6g/dL (2.2-3.9) Albumin/Globulin Ratio 1.3 (0.7-1.7) Yeiqo-7-Utwiwlfha 0.2g/dL (0.0-0.4) Cswlo-9-Aiphfnjln 0.3g/dL (0.4-1.0) Beta Globulins 1.1g/dL (0.7-1.3) Gamma Globulins 1.1g/dL (0.4-1.8) Serum Monoclonal Protein Not observedg/dL Protein Electrophoresis Comment Comment (.) Protein Electrophoresis Interpret Comment (.) Neutrophils (%) (Auto) 87% (40-74) Lymphocytes (%) (Auto) 10% (14-46) Monocytes (%) (Auto) 2% (4-12) Eosinophils (%) (Auto) 0% (0-5) Basophils (%) (Auto) 0% (0-3) Band Neutrophils % 1% (1-5) Hematology Comments Pro-B-Type Natriuretic Peptide 64787fx/mL (0-486) Urine Color Yellow (YELLOW) Urine Appearance Hazy (CLEAR,HAZY) Urine pH 5.5 (5.0-8.0) Urine Specific Todd 1.010 (1.003-1.035) Urine Protein Negativemg/dL (NEG,TRACE) Urine Glucose (UA) Negativemg/dL (NEGATIVE) Urine Ketones Negativemg/dL (NEGATIVE) Urine Occult Blood Moderate (NEGATIVE) Urine Nitrite Negative (NEGATIVE) Urine Bilirubin Negative (NEGATIVE) Urine Urobilinogen Normalmg/dL (NORMAL) Urine Leukocyte Esterase Large (NEGATIVE) Urine RBC 11-50/hpf (0-2) Urine WBC 11-50/hpf (0-5) Urine Epithelial Cells Occasional/hpf (NONE-MOD) Urine Crystals None seen (NONE SEEN) Urine Bacteria Few/hpf (NONE-FEW) Urine Hyaline Casts None/lpf (NONE) Urine Granular Casts None seen (NONE SEEN) Urine Waxy Casts None seen (NONE SEEN) Urine Red Blood Cell Casts None seen (NONE SEEN) Urine White Blood Cell Casts None seen (NONE SEEN) Urine Mucus None seen (None Seen) Urine Trichomonas None seen (NONE SEEN) Urine Yeast None (NONE SEEN) Urinalysis Comment None Urine Culture Reflexed Indicated White Blood Count 13.0th/mm3 (3.8-10.1) Red Blood Count 4.51mil/mm3 (4.40-5.80) Hemoglobin 9.2g/dL (13.8-17.2) Hematocrit 29.0% (41.0-50.0) Mean Corpuscular Volume 64.3fL (81-100) Mean Corpuscular Hemoglobin 20.4pg (27.0-35.0) Mean Corpuscular Hemoglobin Concent 31.7% (32.0-37.0) Red Cell Distribution Width 21.1% (12.3-15.4) Platelet Count 110bil/L (150-400) Prothrombin Time 28.7sec (8.1-12.5) Prothromb Time International Ratio 2.63ratio Osmolality 294 (275-300) Phosphorus Level 2.8mg/dL (2.5-4.9) Magnesium Level 2.1mg/dL (1.6-2.6) Total Bilirubin 1.7mg/dL (0.0-1.2) Aspartate Amino Transf (AST/SGOT) 77U/L (0-50) Alanine Aminotransferase (ALT/SGPT) 41U/L (0-44) Alkaline Phosphatase 105U/L (25-160) Ammonia 31ug/dL (18-53) Total Protein 6.3g/dL (6.4-8.4) Albumin 3.4g/dL (3.4-5.0) Test 09/21/16 14:07 Sodium Level 129mEq/L (134-144) Potassium Level 3.6mEq/L (3.5-5.2) Chloride Level 88mEq/L (97-108) Carbon Dioxide Level 24mmol/L (18-29) Blood Urea Nitrogen 56mg/dL (8-27) Creatinine 1.14mg/dL (0.76-1.27) Estimat Glomerular Filtration Rate 65mL/min (>59) Glucose Level 188mg/dL (60-99) Calcium Level 9.3mg/dL (8.5-10.1) Discharge Medications Discharge Medications Alfuzosin ER (Alfuzosin ER) 10 Mg Tab.er.24h 10 MG PO QAM (Reported) Calcium Carbonate/Vitamin D3 (Calcium 600 + Vit D3 Tablet) 1 Each Tablet 1 EACH PO BID (Reported) Carvedilol (Carvedilol) 3.125 Mg Tablet 3.125 MG PO BID Prescribed by: GRANT LOZANO MD Furosemide (Furosemide) 20 Mg Tab 60 MG PO BID (Reported) Magnesium Oxide (Magnesium) 400 Mg Capsule 400 MG PO BID (Reported) Spironolactone (Spironolactone) 25 Mg Tablet 12.5 MG PO QAM (Reported) Warfarin Sodium (Warfarin Sodium) 5 Mg Tablet 2.5 MG PO DAILY except ( Reported) Warfarin Sodium (Warfarin Sodium) 5 Mg Tablet 5 MG PO Q Tuesday (Reported) As needed Nitroglycerin SL (Nitrostat) 0.4 Mg Tab.subl 0.4 MG SL Q5MIN PRN PRN For Chest Pain (Reported) oxyCODONE (oxyCODONE) 5 Mg Tablet 5 MG PO BID PRN PRN For Pain (Reported) Followup Plan Disposition: . Attending Statement The patient was discussed together with Dr. Guerrero on 09/21/2016 and I agree with the history as outlined in the note above. . copies to: Edwina Chavez MD, Alan C DO September 25, 2016 17:56 Dereje Del Rosario MD September 27, 2016 08:40
== END 2016-09-21 22:05 | disposition expired | DRG 682 ==
LOC: SED 14:48 → OSC 18:05 → PCC 09-18 14:13
PROVIDERS: ADMIT Internal Medicine; ATTEND Internal Medicine
DX: N17.8 Other acute kidney failure (principal); I50.23 Acute on chronic systolic (congestive) heart failure; I13.0 Hypertensive heart and chronic kidney disease with heart failure and stage 1 through stage 4 chronic kidney disease, or unspecified chronic kidney disease; E87.1 Hypo-osmolality and hyponatremia; T83.511A Infection and inflammatory reaction due to indwelling urethral catheter, initial encounter; N39.0 Urinary tract infection, site not specified; N18.3 Chronic kidney disease, stage 3 (moderate); K72.90 Hepatic failure, unspecified without coma; Z79.01 Long term (current) use of anticoagulants; Z95.0 Presence of cardiac pacemaker; I25.2 Old myocardial infarction; Z95.5 Presence of coronary angioplasty implant and graft; Z87.891 Personal history of nicotine dependence; R79.1 Abnormal coagulation profile; Z66 Do not resuscitate; I25.5 Ischemic cardiomyopathy; I48.2 Chronic atrial fibrillation; Z92.3 Personal history of irradiation; D69.6 Thrombocytopenia, unspecified; G89.4 Chronic pain syndrome; T39.395A Adverse effect of other nonsteroidal anti-inflammatory drugs [NSAID], initial encounter; Z51.5 Encounter for palliative care; C61 Malignant neoplasm of prostate